=== PATIENT | male | born 1935 | race Asian ===

== ENCOUNTER 2018-05-25 16:22 | Emergency (ER) | END 2018-05-25 23:01 | disposition home or self-care (01) | DX: R07.89 Other chest pain (principal) ==

== ENCOUNTER 2018-09-06 08:08 | Inpatient (IN) | payer MEDICARE, OTHER ==
[~2018-09-06] VITALS: Ht 167.6 cm; Wt 56.2 kg
--- NOTE | 2018-09-06 08:30 | NUR ---
BIBRA[facility] FROM SNF, PER REPORT "CHEST PAIN" AND LOW GRADE FEVER. PATIENT PLACED ON MONITOR. NO DISTRESS NOTED. PIV STARTED ON RAC G20. WILL CONTINUE TO MONITOR.
[2018-09-06 08:32] LABS: BASOPHILS % (AUTO) 0.2 % (0.0-2.0); EOSINOPHILS % (AUTO) 0.1 % (0.0-6.0); HEMATOCRIT 39 % (39-51); HEMOGLOBIN 13.6 g/dL (13.5-17.5); LYMPHOCYTES # (AUTO) 0.8 /CMM (0.8-4.8); LYMPHOCYTES % (AUTO) 7.2 % (20.0-44.0); MEAN CORPUSCULAR HGB CONC 35 g/dl (31.0-36.0); MEAN CORPUSCULAR VOLUME 93 fL (80-96); MONOCYTES # (AUTO) 0.5 /CMM (0.1-1.30); MONOCYTES % (AUTO) 4.4 % (2.0-12.0); NEUTROPHILS # (AUTO) 10.3 /CMM (1.8-8.9); NEUTROPHILS % (AUTO) 88.1 % (43.0-81.0); PLATELET COUNT (AUTO) 161 /CMM (150-450); RED BLOOD CELL COUNT(AUTO) 4.22 MIL/uL (4.5-6.0); WHITE BLOOD COUNT (AUTO) 11.7 K/uL (4.3-11.0)
[2018-09-06 08:41] LABS: CALCIUM, SERUM 8.8 mg/dL (8.5-10.1); CARBON DIOXIDE 25 mmol/L (21-32); CHLORIDE 103 mmol/L (98-107); CREATININE 1.3 mg/dL (0.6-1.3); GLUCOSE 144 mg/dL (74-106); POTASSIUM 3.9 mmol/L (3.5-5.1); SODIUM SERUM 141 mmol/L (136-145); UREA NITROGEN, BLOOD 23 mg/dL (7-18)
--- NOTE | 2018-09-06 08:42 | NUR ---
DR SCHWAB AT BEDSIDE FOR PT EVAL. AWAITING ORDERS
[2018-09-06 08:58] LABS: ALANINE AMINOTRANSFERASE 48 U/L (12-78); ALKALINE PHOSPHATASE 81 U/L (46-116); ASPARTATE AMINOTRANSFERASE 27 U/L (15-37); B-TYPE NATRIURETIC PEPTIDE 188 PG/ML (0-125); BILIRUBIN,DIRECT 0.3 mg/dL (0.0-0.2); BILIRUBIN,TOTAL 1.2 mg/dL (0.2-1.0); TOTAL PROTEIN, SERUM 7.6 g/dL (6.4-8.2)
[2018-09-06] MEDS ORDERED: IV NS 0.9% 1,000 ML BAG IV ONE ×2 (09:00→10:00)
[2018-09-06 09:10] LABS: APPEARANCE,URINE Clear (CLEAR); BILIRUBIN,URINE Negative (NEGATIVE); BLOOD, URINE Trace-intact Ery/uL (NEGATIVE); COLOR,URINE Yellow (YELLOW); KETONES,URINE Negative (NEGATIVE); LEUKOCYTE ESTERASE ,URINE Negative (NEGATIVE); NITRITE, URINE Negative (NEGATIVE); PH,URINE 5.5 (5.0-8.0); PROTEIN,URINE Negative (NEGATIVE); UGLUCOSE Negative (NEGATIVE)
[2018-09-06 09:12] LABS: BACTERIA,URINE None seen /HPF (None Seen); RBC,URINE 0-2 /HPF (0-2); SQUAMOUS EPITHELIAL CELL,UR Few /HPF (None Seen); WBC,URINE 0-2 /HPF (0-3)
[2018-09-06] MEDS ORDERED: DONE10TA44 PO (09:30)
[2018-09-06] MEDS ORDERED: NITR0.4T48 SL (09:30)
[2018-09-06] MEDS ORDERED: BISA10SU8 RC (09:30)
[2018-09-06] MEDS ORDERED: ATOR10TA PO (09:30)
[2018-09-06] MEDS ORDERED: DORZ10DR13 EACHEYE (09:30)
[2018-09-06] MEDS ORDERED: NA P133E RC (09:30)
[2018-09-06] MEDS ORDERED: MAGN400O6 PO (09:30)
[2018-09-06] MEDS ORDERED: DOCU50LI PO (09:30)
[2018-09-06] MEDS ORDERED: ACET-868 PO (09:31)
[2018-09-06] MEDS ORDERED: LATA2.5D2 EACHEYE (09:31)
[2018-09-06] MEDS ORDERED: CHOL100044 PO (09:31)
--- NOTE | 2018-09-06 09:33 | NUR ---
PAGED DR. VEGAS
--- NOTE | 2018-09-06 10:20 | NUR ---
DR. VEGAS CALLED BACK AND SPOKE WITH DR. SCHWAB.
[2018-09-06] MEDS ORDERED: LEVOFLOXACIN 750 MG /D5W 150ML 150 ML IV ONE ×2 (10:28→10:30)
[2018-09-06] MEDS ORDERED: PIPERACILLIN /TAZOBACTAM 3.375 G in IV D5W 50 ML IV ONE (10:30)
--- NOTE | 2018-09-06 10:47 | NUR ---
LACTIC ACID BEING REPEATED, BLOOD DRAWN BY PHLEB.
--- NOTE | 2018-09-06 10:51 | NUR ---
BED ASSIGNED 114-1. PER DR. SCHWAB SHE WILL ORDER CT ABDOMEN WITH CONTRAST.
--- NOTE | 2018-09-06 10:56 | NUR ---
REPORT GIVEN TO CAROLINA JIMENEZ (JESSICA)
--- NOTE | 2018-09-06 13:00 | NUR ---
PATIENT TRANSFERRED TO ROOM 114-1 VIA ACLS PROTOCOL. STABLE CONDITION. ENDORSED TO CAROLINA JIMENEZ.
--- NOTE | 2018-09-06 13:00 | NUR ---
RN [facility] ADMISSION NOTE PATIENT RECEIVED FROM ER VIA GURNEY ASSISTED TO BED, PT RESPONSIVE TO PAINFUL STIMULI ANSWERS SIMPLE QUESTIONS APPROPRIATELY ORIENTED TO SELF. RESPIRATIONS EVEN AND UNLABORED, NOTED WITH UPPER AIRWAY CONGESTION. IN NO APPARENT PAIN OR DISCOMFORT AT THIS TIME. IV ACCESS TO RIGHT AC PATENT AND INTACT NO REDNESS OR INFILTRATION NOTED. DR. VEGAS PAGENico FOR ADMISSION ORDERS WILL CONTINUE TO MONITOR. ORIENTED TO ROOM AND USE OF CALL LIGHT, WILL CONTINUE TO MONITOR
[2018-09-06 13:13] VITALS: BP 120/73
[2018-09-06] MEDS ORDERED: CEFTRIAXONE 1 G VIAL IV SCH (14:00)
[2018-09-06] MEDS ORDERED: ALBUTEROL HALF STRENGTH 1.25 MG/3 ML VIAL.NEB NEB PRN (14:00)
[2018-09-06] MEDS: AZITHROMYCIN 500 MG in IV D5W 250 ML IV SCH ×2 (15:42→16:11)
[2018-09-06] MEDS: ALBUTEROL HALF STRENGTH 1.25 MG/3 ML VIAL.NEB NEB SCH ×3 (15:58→23:28)
[2018-09-06 16:00] VITALS: BP 114/66
--- NOTE | 2018-09-06 16:11 | NUR ---
RN NOTES AZITHROMYCIN ONLY GIVEN X1 DOSE SCANNED AT 1542, CONTINUE TO MONITOR AT THIS TIME , [facility] SHOWING 2 SCANS
[2018-09-06] MEDS: CEFTRIAXONE 1 G in IV D5W 50 ML IV SCH (16:19)
--- NOTE | 2018-09-06 19:01 | NUR ---
RN [facility] NOTE PATIENT RESTING COMFORTABLY IN BED, PT RESPONSIVE TO PAINFUL STIMULI ANSWERS SIMPLE QUESTIONS APPROPRIATELY ORIENTED TO SELF. RESPIRATIONS EVEN AND UNLABORED, NOTED WITH UPPER AIRWAY CONGESTION. IN NO APPARENT PAIN OR DISCOMFORT AT THIS TIME. IV ACCESS TO RIGHT AC PATENT AND INTACT NO REDNESS OR INFILTRATION NOTED. DR. ASCENCION CHATMAN FOR ADMISSION ORDERS WILL CONTINUE TO MONITOR. ORIENTED TO ROOM AND USE OF CALL LIGHT, WILL CONTINUE TO MONITOR AND ENDORSE TO NEXT SHIFT FOR CONTINUITY OF CARE
[2018-09-06 20:00] VITALS: BP 119/68
--- NOTE | 2018-09-06 20:00 | NUR ---
[facility] RN NOTES RECEIVED PTS IN BED AWaKE , CONFUSED , ON TELE SR ON MONITOR , NO SOB NO DISTRESS NOTED V/S STABLE AFEBRILE ,PTS STILL NOTED CONGESTED ON R/A SATING 96%, ALL NEEDS ATTENDED TOO CALL LIGHT WITHIN REACH , KEPT PTS CLEAN DRY AND COMFORTABLE ,WILL CONTINUE TO MONITOR PTS.
[2018-09-07] VITALS: BP 106/62
[2018-09-07] MEDS: ALBUTEROL HALF STRENGTH 1.25 MG/3 ML VIAL.NEB NEB SCH ×6 (03:15→23:33)
[2018-09-07 04:00] VITALS: BP 121/75
--- NOTE | 2018-09-07 06:36 | NUR ---
[facility] RN NOTES PTS REMAINS IN BED AWAKE AND RESPONSIVE, WITH PERIOD OF CONCUSSION NO SOB NO DISTRESS NOTED WILL ENDORSE RN DAY SHIFT FOR CONTINUITY OF CARE
--- NOTE | 2018-09-07 07:00 | NUR ---
[facility] RN OPENING NOTES RECEIVED PT IN BED, A/OX2. ON ROOM AIR. O2 SAT WNL; NON LABORED BREATHING. DIMINISHED LUNG BASES. NO C/O PAIN OR DISTRESS AT THIS TIME. IV HL ON RAC. FLUSHED/PATENT. ON TELE SR 99 WITH PVC'S. WILL FOLLOW UP WITH PHARMACY FOR MED RECON.M KANDICE IN CHART. BED IN LOCKED/LOWEST POSITION. CALL LIGHT IN REACH. WILL CONT TO MONITOR.
[2018-09-07 08:00] VITALS: BP 105/60
[2018-09-07] MEDS ORDERED: NITROGLYCERIN 0.4 MG/TAB BOTTLE SL PRN (08:00)
[2018-09-07] MEDS ORDERED: ACETAMINOPHEN 325 MG TABLET PO PRN (08:00)
[2018-09-07] MEDS ORDERED: NA PHOS,M-B/NA PHOS,DI-BA 1 EA ENEMA RC PRN (08:00)
[2018-09-07] MEDS ORDERED: BISACODYL SUPP (10 MG) 10 MG/SUPP.RECT SUPP.RECT RC PRN (08:00)
[2018-09-07] MEDS ORDERED: MAGNESIUM HYDROXIDE 30 ML UDC PO PRN (08:00)
[2018-09-07] MEDS ORDERED: TIMOLOL MAL/DORZOLAM HCL OPHTH 10 ML BOTTLE EACHEYE SCH (09:00)
--- NOTE | 2018-09-07 09:15 | NUR ---
ANTHROPOLOGY DEPARTMENT CHAIR NOTES PER DR. MONSTER BUSH TO TRANSFER TO [facility].
[2018-09-07] MEDS: TIMOLOL 0.5% SOLN OPHTH 5 ML BOTTLE EACHEYE SCH ×2 (09:44→17:00)
[2018-09-07] MEDS: DOCUSATE SODIUM 100 MG CAPSULE PO SCH (09:45)
[2018-09-07] MEDS: DORZOLAMIDE OPTH 2% 10 ML BOTTLE EACHEYE SCH ×2 (09:45→17:00)
[2018-09-07] MEDS: CHOLECALCIFEROL (VITAMIN D 3) 400 UNIT TABLET PO SCH (09:45)
--- NOTE | 2018-09-07 09:59 | NUR ---
MS RN NOTES PT UP WITH PT. SAT IN CHAIR.
[2018-09-07] MEDS: CEFTRIAXONE 1 G in IV D5W 50 ML IV SCH (14:12)
[2018-09-07 16:00] VITALS: BP 110/62
[2018-09-07] MEDS ORDERED: MEROPENEM 1 G in IV NS 0.9% 100 ML IV ONE (16:00)
[2018-09-07] MEDS ORDERED: IV NS 0.9% 1,000 ML BAG IV PRN (17:30)
[2018-09-07] MEDS: IV NS 0.9% 1,000 ML IV PRN (17:54)
[2018-09-07 17:56] LABS: ALANINE AMINOTRANSFERASE 40 U/L (12-78); ALBUMIN 3.2 g/dL (3.4-5.0); ALKALINE PHOSPHATASE 65 U/L (46-116); ASPARTATE AMINOTRANSFERASE 30 U/L (15-37); BILIRUBIN,TOTAL 2.2 mg/dL (0.2-1.0); CALCIUM, SERUM 8.3 mg/dL (8.5-10.1); CARBON DIOXIDE 25 mmol/L (21-32); CHLORIDE 106 mmol/L (98-107); GLUCOSE 102 mg/dL (74-106); POTASSIUM 3.7 mmol/L (3.5-5.1); SODIUM SERUM 141 mmol/L (136-145); TOTAL PROTEIN, SERUM 6.9 g/dL (6.4-8.2); UREA NITROGEN, BLOOD 12 mg/dL (7-18)
--- NOTE | 2018-09-07 19:32 | NUR ---
MS RN END OF SHIFT NOTES PT IN BED, A/OX2. SEEN BY DR VEGAS. NO S/SX OF RESP DISTRES. VS WNL. DAUGHTER UPDATED WITH POC. BED IN LOCKED/LOWEST POSITION. CALL LIGHT IN REACH. ENDORSED TO NOC NURSE FOR GREGORY.
[2018-09-07 20:00] VITALS: BP 96/59
--- NOTE | 2018-09-07 20:22 | NUR ---
RN OPENING NOTES RECEIVED REPORT FROM ADITYA JIMENEZ. PATIENT A/A/O X1-2 W/ SOME CONFUSION BUT ABLE ABLE TO MAKE NEEDS KNOWN & STATE PAIN. BREATHING EVEN & UNLABORED, TOLERATING ROOM AIR. DENIES ANY SOB OR DIFFICULTY BREATHING. RADIAL PULSES PRESENT. RIGHT AC IV #22 INTACT & PATENT W/ DRESSING CDI & IVF NS INFUSING WELL @ 75 ML/HR. DENIES ANY PAIN OR DISCOMFORT @ THIS TIME. SAFETY MEASURES IN PLACE W/ SIDE RAILS UP & BED ALARM ON. INSTRUCTED TO USE CALL LIGHT FOR ASSISTANCE. WILL CONTINUE TO MONITOR.
[2018-09-07] MEDS ORDERED: MEROPENEM 500 MG in IV NS 0.9% 50 ML IV SCH (21:00)
[2018-09-07] MEDS: DONEPEZIL 5 MG TABLET PO SCH (21:07)
[2018-09-07] MEDS: ATORVASTATIN 10 MG TABLET PO SCH (21:07)
[2018-09-07] MEDS: ENOXAPARIN SODIUM 40 MG/0.4 ML DISP.SYRIN SQ SCH (21:08)
[2018-09-07] MEDS: MEROPENEM 1 G in IV NS 0.9% 100 ML IV SCH (21:38)
[2018-09-07] MEDS: LATANOPROST EYE DROP 0.005% 2.5 ML BOTTLE EACHEYE SCH (21:39)
[2018-09-08] MEDS: ALBUTEROL HALF STRENGTH 1.25 MG/3 ML VIAL.NEB NEB SCH ×6 (03:40→23:50)
[2018-09-08 04:00] VITALS: BP 100/45
[2018-09-08 07:08] LABS: BASOPHILS % (AUTO) 0.3 % (0.0-2.0); EOSINOPHILS % (AUTO) 1.6 % (0.0-6.0); HEMATOCRIT 35 % (39-51); HEMOGLOBIN 12.5 g/dL (13.5-17.5); LYMPHOCYTES # (AUTO) 1.1 /CMM (0.8-4.8); LYMPHOCYTES % (AUTO) 14.4 % (20.0-44.0); MEAN CORPUSCULAR HGB CONC 36 g/dl (31.0-36.0); MEAN CORPUSCULAR VOLUME 92 fL (80-96); MONOCYTES # (AUTO) 0.4 /CMM (0.1-1.30); MONOCYTES % (AUTO) 4.7 % (2.0-12.0); NEUTROPHILS # (AUTO) 6.2 /CMM (1.8-8.9); PLATELET COUNT (AUTO) 140 /CMM (150-450); RED BLOOD CELL COUNT(AUTO) 3.82 MIL/uL (4.5-6.0); WHITE BLOOD COUNT (AUTO) 7.8 K/uL (4.3-11.0)
[2018-09-08 08:00] VITALS: BP 108/68
[2018-09-08] MEDS: DORZOLAMIDE OPTH 2% 10 ML BOTTLE EACHEYE SCH ×2 (08:56→16:16)
[2018-09-08] MEDS: DOCUSATE SODIUM 100 MG CAPSULE PO SCH (08:57)
[2018-09-08] MEDS: ASPIRIN EC 81 MG TABLET.DR PO SCH (08:57)
[2018-09-08] MEDS: CHOLECALCIFEROL (VITAMIN D 3) 400 UNIT TABLET PO SCH (08:57)
[2018-09-08] MEDS: MEROPENEM 1 G in IV NS 0.9% 100 ML IV SCH ×2 (08:57→20:49)
[2018-09-08] MEDS: TIMOLOL 0.5% SOLN OPHTH 5 ML BOTTLE EACHEYE SCH ×2 (08:57→16:17)
[2018-09-08 16:00] VITALS: BP 130/68
--- NOTE | 2018-09-08 19:00 | NUR ---
MS RN END OF SHIFT NOTES PT BACK IN BED, AFTER SITTING IN CHAIR EATING DINNER. PT ON IV FLUIDS INFUSING AT 75ML/HR. NO S/SX OF DISTRESS. BED IN LOCKED/LOWEST POSITION. BED ALARM ON. REPORTED TO NOC NURSE FOR GREGORY.
--- NOTE | 2018-09-08 19:29 | NUR ---
RN MS OPENING NOTES RECEIVED BED SIDE REPORT, PT CURRENTLY SITTING UP IN CHAIR EATING DINNER, A/O X2-3 BREATHING EVEN AND UNLABORED ON ROOM AIR, NO SIGNS OF SOB. NO COMPLAINT OF PAIN OR DISCOMFORT AT THE MOMENT. IV ACCESS ON THE RFA 20G, SL PATENT AND FLUSHING. PT WEARING A DIAPER, CLEAN AT THE MOMENT. BED IN LOWEST LOCKED POSITION, CALL LIGHT WITHIN REACH AT ALL TIMES, WILL CONTINUE TO MONITOR FREQUENTLY.
[2018-09-08] MEDS: DONEPEZIL 5 MG TABLET PO SCH (21:31)
[2018-09-08] MEDS: ATORVASTATIN 10 MG TABLET PO SCH (21:31)
[2018-09-08] MEDS: LATANOPROST EYE DROP 0.005% 2.5 ML BOTTLE EACHEYE SCH (21:32)
[2018-09-08] MEDS: ENOXAPARIN SODIUM 40 MG/0.4 ML DISP.SYRIN SQ SCH (21:32)
[2018-09-08 22:01] VITALS: BP 114/66
[2018-09-09] VITALS: BP 114/66
[2018-09-09] MEDS: IV NS 0.9% 1,000 ML IV PRN (02:23)
[2018-09-09] MEDS: ALBUTEROL HALF STRENGTH 1.25 MG/3 ML VIAL.NEB NEB SCH ×6 (03:39→23:18)
--- NOTE | 2018-09-09 06:07 | NUR ---
RN MS CLOSING NOTES PT REMAINS IN BED, SLEEPING, EASILY AROUSED TO NAME CALL, BREATHING EVEN AND UNLABORED ON ROOM AIR, NO SOB, COUGH OR CONGESTION NOTED. IN NO APPARENT PAIN OR DISCOMFORT AT THIS TIME. IV ACCESS ON THE RFA 20G WITH NS @75ML/HR. KEPT PT CLEAN AND DRY AT ALL TIMES. BED IN LOWEST LOCKED POSITION, CALL LIGHT WITHIN REACH AT ALL TIMES. WILL ENDORSE TO DAY NURSE FOR GREGORY.
--- NOTE | 2018-09-09 07:15 | NUR ---
RN OPENING NOTE RECEIVED PATIENT IN BED AWAKE AND ASKED HELPED TO GO TO THE BATHROOM. PATIENT IS AMBULATORY AND STEADY. NO COMPLAINS OF ANY PAIN OR SOB. HAS A RIGHT FOREARM #20 WITH THE LAST BAG OF NS RUNNING AT 75 ML/HR. HAS A SCHEDULED SWALLOW EVAL. BED LOCKED AND LOW POSITION. CALL LIGHT WITHIN REACH. WILL CONTINUE TO MONITOR
[2018-09-09 08:00] VITALS: BP 116/67
[2018-09-09] MEDS: CHOLECALCIFEROL (VITAMIN D 3) 400 UNIT TABLET PO SCH (08:27)
[2018-09-09] MEDS: ASPIRIN EC 81 MG TABLET.DR PO SCH (08:27)
[2018-09-09] MEDS: DOCUSATE SODIUM 100 MG CAPSULE PO SCH (08:27)
[2018-09-09] MEDS: MEROPENEM 1 G in IV NS 0.9% 100 ML IV SCH ×2 (08:27→21:11)
[2018-09-09] MEDS: TIMOLOL 0.5% SOLN OPHTH 5 ML BOTTLE EACHEYE SCH ×2 (08:29→17:13)
[2018-09-09] MEDS: DORZOLAMIDE OPTH 2% 10 ML BOTTLE EACHEYE SCH ×2 (08:29→17:13)
--- NOTE | 2018-09-09 09:15 | NUR ---
RN NOTE PATIENT WAS SEEN BY THE PHYSICAL THERAPIST, AMBULATED TO THE HALLWAY USING A WALKER. PATIENT DID SOME BED EXERCISES FOR HIS LOWER EXTREMITIES. NO COMPLAINS OF PAIN NOR SOB.
--- NOTE | 2018-09-09 12:00 | NUR ---
RN NOTE PATIENT IS EATING HIS LUNCH INDEPENDENTLY. PATIENT SITS ON THE EDGE OF THE BED BY HIMSELF. NO COMPLAINS OF ANY PAIN OR ANY DISTRESS AT THIS TIME.
[2018-09-09 16:00] VITALS: BP 132/64
--- NOTE | 2018-09-09 18:43 | NUR ---
RN CLOSING NOTE PATIENT AWAKE, A&Ox2-3. ALL NEEDS MET. 100% INTAKE FOR B,L AND D. NO COMPLAINS OF ANY PAIN THROUGHOUT THE SHIFT. NO SOB. WALKED WITH PT TODAY USING A WALKER. ALL MEDS GIVEN. WILL ENDORSE TO NOC SHIFT NURSE FOR CONTINUITY OF CARE.
--- NOTE | 2018-09-09 19:55 | NUR ---
RN NOTES RECEIVED PATIENT AWAKE IN BED, ALERT ORIENTED X3, NO SIGNS OF ACUTE RESPIRATORY DISTRESS NOTED, ALL SAFETY MEASURES IN PLACED, AMBULATORY WITH STANDBY ASSIST, DENIES ANY PAIN OR DISCOMFORT, ALL NEEDS ATTENDED, WILL MONITOR ACCORDINGLY.
[2018-09-09 20:00] VITALS: BP 124/69
[2018-09-09] MEDS: DONEPEZIL 5 MG TABLET PO SCH (21:12)
[2018-09-09] MEDS: ATORVASTATIN 10 MG TABLET PO SCH (21:12)
[2018-09-09] MEDS: ENOXAPARIN SODIUM 40 MG/0.4 ML DISP.SYRIN SQ SCH (21:15)
[2018-09-09] MEDS: LATANOPROST EYE DROP 0.005% 2.5 ML BOTTLE EACHEYE SCH (21:16)
[2018-09-10] VITALS: BP 124/69
[2018-09-10] MEDS: ALBUTEROL HALF STRENGTH 1.25 MG/3 ML VIAL.NEB NEB SCH ×6 (03:30→22:56)
--- NOTE | 2018-09-10 06:44 | NUR ---
RN NOTES ALL NEEDS ATTENDED AND MET, ABLE TO REST AND SLEEP COMFORTABLY AT INTERVALS, DENIES ANY PAIN AND DISCOMFORT, DAUGHTER CALLED AT 0600 ASKING PATIENTS CURRENT STATUS, INFORMED HER THAT WE WILL BE AWAITING FOR MD'S ROUNDS FOR TODAY, WE WILL CONTINUE TO MONITOR THE PATIENT, PATIENTS DAUGHTER VERBALIZES UNDERSTANDING. MARY ENDORSE TO AM NURSE FOR CONTINUITY OF CARE.
--- NOTE | 2018-09-10 07:00 | NUR ---
RN AM SHIFT NOTE PATIENT ALERT AND ORIENTED X2-3. COOPERATIVE AND PLEASANT. IN BED, IV PATENT AND INTACT, SKIN INTACT, NO COMPLAINS OF PAIN VITALS WNL. IV FLUIDS RUNNING, PATIENT ABLE TO AMBULATE WITH ASSIST. SAW PATIENT THIS AM AND REQUEST AM LABS TO BE DONE 09/11 WELL ANOTHER PT CONSULT. PT STATED PATIENT CAN AMBULATE WITH ASSIST AND ASSISTIVE DEVICE ONLY. FALL PRECAUTIONS IN PLACE, SAFETY MEASURES IN PLACE.
[2018-09-10 08:00] VITALS: BP 128/67
[2018-09-10 08:35] VITALS: BP 128/67
[2018-09-10] MEDS: MEROPENEM 1 G in IV NS 0.9% 100 ML IV SCH ×2 (08:36→21:21)
[2018-09-10] MEDS: ASPIRIN EC 81 MG TABLET.DR PO SCH (08:36)
[2018-09-10] MEDS: DOCUSATE SODIUM 100 MG CAPSULE PO SCH (08:36)
[2018-09-10] MEDS: CHOLECALCIFEROL (VITAMIN D 3) 400 UNIT TABLET PO SCH (08:36)
[2018-09-10] MEDS: TIMOLOL 0.5% SOLN OPHTH 5 ML BOTTLE EACHEYE SCH ×2 (08:37→16:00)
[2018-09-10] MEDS: DORZOLAMIDE OPTH 2% 10 ML BOTTLE EACHEYE SCH ×2 (08:37→16:00)
--- NOTE | 2018-09-10 11:30 | NUR ---
RN NOTES RECEIVED PT ON BED, ALERT , CONFUSED AND FORGETFUL AT TIMES , ON RA , RESPIRATION EVEN AND UNLABORED,SR UP x3, CALL LIGHT WITHIN EASY REACH, BED LOCKED AND IN LOWEST POSITION , CONTINUE TO MONITOR .
[2018-09-10 16:00] VITALS: BP 110/65
--- NOTE | 2018-09-10 18:00 | NUR ---
RN NOTES PT STABLE , NO SIGNIFICANT CHANGES NOTE ON THIS SHIFT, WILL ENDOSE TO CARDIOVASCULAR RN NURSE FOR CONTINUITY OF CARE
--- NOTE | 2018-09-10 19:10 | NUR ---
RN M/S NOTE PATIENT IS AOX2-3, SPEECH CLEAR, ON ROOM AIR, NO S/SX OF CARDIAC OR RESPIRATORY DISTRESS, DENIES PAIN, AMBULATORY, RAC #20G PATENT FLUSHING WELL, SKIN KEPT CLEAN AND DRY, SAFETY MAINTAINED AT ALL TIMES, BED IN LOW LOCKED POSITION, CALL LIGHT WITHIN REACH, WILL CONTINUE TO MONITOR FOR ANY CHANGES IN CONDITION.
[2018-09-10 20:00] VITALS: BP 96/54
[2018-09-10] MEDS: ENOXAPARIN SODIUM 40 MG/0.4 ML DISP.SYRIN SQ SCH (21:21)
[2018-09-10] MEDS: ATORVASTATIN 10 MG TABLET PO SCH (21:22)
[2018-09-10] MEDS: DONEPEZIL 5 MG TABLET PO SCH (21:23)
[2018-09-10] MEDS: LATANOPROST EYE DROP 0.005% 2.5 ML BOTTLE EACHEYE SCH (21:33)
[2018-09-11] MEDS: ALBUTEROL HALF STRENGTH 1.25 MG/3 ML VIAL.NEB NEB SCH ×4 (03:01→14:43)
[2018-09-11 04:00] VITALS: BP 130/60
[2018-09-11 06:39] LABS: BASOPHILS % (AUTO) 0.3 % (0.0-2.0); EOSINOPHILS % (AUTO) 5.4 % (0.0-6.0); HEMATOCRIT 33 % (39-51); HEMOGLOBIN 11.8 g/dL (13.5-17.5); LYMPHOCYTES # (AUTO) 1.6 /CMM (0.8-4.8); MEAN CORPUSCULAR HGB CONC 36 g/dl (31.0-36.0); MEAN CORPUSCULAR VOLUME 90 fL (80-96); MONOCYTES # (AUTO) 0.6 /CMM (0.1-1.30); MONOCYTES % (AUTO) 9.9 % (2.0-12.0); NEUTROPHILS # (AUTO) 3.8 /CMM (1.8-8.9); NEUTROPHILS % (AUTO) 59.4 % (43.0-81.0); PLATELET COUNT (AUTO) 184 /CMM (150-450); RED BLOOD CELL COUNT(AUTO) 3.63 MIL/uL (4.5-6.0); WHITE BLOOD COUNT (AUTO) 6.4 K/uL (4.3-11.0)
[2018-09-11 06:59] LABS: CALCIUM, SERUM 8.4 mg/dL (8.5-10.1); CARBON DIOXIDE 25 mmol/L (21-32); CHLORIDE 101 mmol/L (98-107); CREATININE 0.8 mg/dL (0.6-1.3); GLUCOSE 90 mg/dL (74-106); POTASSIUM 3.6 mmol/L (3.5-5.1); SODIUM SERUM 136 mmol/L (136-145); UREA NITROGEN, BLOOD 15 mg/dL (7-18)
--- NOTE | 2018-09-11 07:00 | NUR ---
RN M/S OPENING NOTE PATIENT IS AOX2-3, SPEECH CLEAR, ON ROOM AIR, NO S/SX OF CARDIAC OR RESPIRATORY DISTRESS, DENIES PAIN, AMBULATORY, RAC #20G PATENT FLUSHING WELL, SKIN KEPT CLEAN AND DRY, SAFETY MAINTAINED AT ALL TIMES, BED IN LOW LOCKED POSITION, CALL LIGHT WITHIN REACH, WILL CONTINUE TO MONITOR FOR ANY CHANGES IN CONDITION.
[2018-09-11 08:00] VITALS: BP 114/65
[2018-09-11] MEDS: ASPIRIN EC 81 MG TABLET.DR PO SCH (08:27)
[2018-09-11] MEDS: MEROPENEM 1 G in IV NS 0.9% 100 ML IV SCH (08:27)
[2018-09-11] MEDS: CHOLECALCIFEROL (VITAMIN D 3) 400 UNIT TABLET PO SCH (08:27)
[2018-09-11] MEDS: DOCUSATE SODIUM 100 MG CAPSULE PO SCH (08:27)
[2018-09-11] MEDS: TIMOLOL 0.5% SOLN OPHTH 5 ML BOTTLE EACHEYE SCH (08:28)
[2018-09-11] MEDS: DORZOLAMIDE OPTH 2% 10 ML BOTTLE EACHEYE SCH (08:28)
[2018-09-11 16:00] VITALS: BP 108/59
--- NOTE | 2018-09-11 16:50 | NUR ---
RN M/S DISCHARGE NOTE GAVE PT REPORT TO BARBARA PETERS [facility] FOR GREGORY. PATIENT STABLE, IS AOX2-3, SPEECH CLEAR, ON ROOM AIR, NO S/SX OF CARDIAC OR RESPIRATORY DISTRESS, DENIES PAIN, AMBULATORY, RAC #20G PATENT FLUSHING WELL. VITALS SIGNS WNL. SKIN KEPT CLEAN AND DRY, SAFETY MAINTAINED AT ALL TIMES, ALL MD ORDERS ATTENDED, ALL NEEDS MET. EXIT CARE DONE. CALLED MACARENA (DAUGHTER) FOR UPDATE AND TRANSFER INFORMATION. PT LEFT THE UNIT VIA GURNEY WITH AMBULANCE PERSONNEL.
== END 2018-09-11 16:50 | DRG 871 ==
LOC: ER 08:12 → TELE-TD 10:54 → MEDSG1 09-07 09:09
PROVIDERS: ADMIT Internal Medicine; ATTEND Internal Medicine
DX: A41.9 Sepsis, unspecified organism (principal); J69.0 Pneumonitis due to inhalation of food and vomit; N17.9 Acute kidney failure, unspecified; R64 Cachexia; G93.40 Encephalopathy, unspecified; D69.6 Thrombocytopenia, unspecified; I25.10 Atherosclerotic heart disease of native coronary artery without angina pectoris; Z98.61 Coronary angioplasty status; Z68.20 Body mass index [BMI] 20.0-20.9, adult; D72.829 Elevated white blood cell count, unspecified; R65.20 Severe sepsis without septic shock; F03.90 Unspecified dementia, unspecified severity, without behavioral disturbance, psychotic disturbance, mood disturbance, and anxiety; H40.9 Unspecified glaucoma; I10 Essential (primary) hypertension; Z66 Do not resuscitate
CPT/HCPCS: 36415; 71045-TC; 71250-TC; 80048-TC; 80053-TC; 80076-TC; 81000-TC; 83605-TC; 83880; 84484-TC; 85025-TC; 85730-TC; 87040-TC; 87081-TC; 87086-TC; 97110-TC; 97112-TC; 97116-TC; 97530-TC; A4216; G0378; J0456; J0696; J1650; J1956; J2185; J2543; J7030; J7050; J7060

== ENCOUNTER 2018-09-26 12:42 | Emergency (ER) | payer MEDICARE, OTHER ==
[~2018-09-26] VITALS: Ht 167.6 cm; Wt 59.4 kg
[~2018-09-26 12:42] MED LIST: ACET-868 PO; ATOR10TA PO; BISA10SU8 RC; CHOL100044 PO; DOCU50LI PO; DONE10TA44 PO; DORZ10DR13 EACHEYE; LATA2.5D2 EACHEYE; MAGN400O6 PO; NA P133E RC; NITR0.4T48 SL
--- NOTE | 2018-09-26 12:44 | NUR ---
PT BIB PA FROM [facility], [facility]CE YESTERDAY, PT IS AAOX2, NOT IN RESPIRATORY DISTRESS, V/S STABLE, KEPT RESTED AND COMFORTABLE, WILL CONTINUE TO MONITOR.
--- NOTE | 2018-09-26 12:45 | NUR ---
IV LINE ESTABLISHED, LABS DRAWNED AND SENT TO LAB.
--- NOTE | 2018-09-26 12:49 | NUR ---
DR. PENALOZA AT BEDSIDE FOR EVAL.
[2018-09-26] MEDS ORDERED: IV NS 0.9% 500 ML BAG IV ONE (13:00)
[2018-09-26 13:03] LABS: BASOPHILS # (AUTO) 0.1 /CMM (0.0-0.2); BASOPHILS % (AUTO) 0.6 % (0.0-2.0); EOSINOPHILS % (AUTO) 0.6 % (0.0-6.0); HEMATOCRIT 39 % (39-51); HEMOGLOBIN 13.8 g/dL (13.5-17.5); LYMPHOCYTES # (AUTO) 0.8 /CMM (0.8-4.8); MEAN CORPUSCULAR HGB CONC 35 g/dl (31.0-36.0); MEAN CORPUSCULAR VOLUME 93 fL (80-96); MONOCYTES # (AUTO) 0.5 /CMM (0.1-1.30); MONOCYTES % (AUTO) 4.9 % (2.0-12.0); NEUTROPHILS # (AUTO) 8.8 /CMM (1.8-8.9); NEUTROPHILS % (AUTO) 85.9 % (43.0-81.0); PLATELET COUNT (AUTO) 220 /CMM (150-450); RED BLOOD CELL COUNT(AUTO) 4.23 MIL/uL (4.5-6.0); WHITE BLOOD COUNT (AUTO) 10.2 K/uL (4.3-11.0)
[2018-09-26 13:13] LABS: CALCIUM, SERUM 8.8 mg/dL (8.5-10.1); CARBON DIOXIDE 31 mmol/L (21-32); CHLORIDE 103 mmol/L (98-107); CREATININE 1.2 mg/dL (0.6-1.3); GLUCOSE 124 mg/dL (74-106); POTASSIUM 4.4 mmol/L (3.5-5.1); SODIUM SERUM 139 mmol/L (136-145); UREA NITROGEN, BLOOD 21 mg/dL (7-18)
--- NOTE | 2018-09-26 13:15 | NUR ---
URINE SPECIMEN COLLECED VIA STRAIGHT CATH AND SENT TO LAB.
[2018-09-26] MEDS ORDERED: ASPI-1169 PO (13:16)
[2018-09-26] MEDS ORDERED: DORZ10DR10 EACHEYE (13:16)
[2018-09-26] MEDS ORDERED: TIMO5DRO35 EACHEYE (13:16)
[2018-09-26] MEDS ORDERED: IPRA3AMP23 IH ×2 (13:16)
--- NOTE | 2018-09-26 13:16 | NUR ---
WILDLIFE REMOVAL SPECIALIST AT BEDSIDE FOR XRAY.
[2018-09-26 13:19] LABS: ALANINE AMINOTRANSFERASE 46 U/L (12-78); ALBUMIN 3.8 g/dL (3.4-5.0); ALKALINE PHOSPHATASE 96 U/L (46-116); ASPARTATE AMINOTRANSFERASE 25 U/L (15-37); BILIRUBIN,DIRECT 0.3 mg/dL (0.0-0.2); BILIRUBIN,TOTAL 2.4 mg/dL (0.2-1.0); TOTAL PROTEIN, SERUM 7.6 g/dL (6.4-8.2)
[2018-09-26 13:22] LABS: APPEARANCE,URINE Clear (CLEAR); BILIRUBIN,URINE Negative (NEGATIVE); BLOOD, URINE Trace-intact Ery/uL (NEGATIVE); COLOR,URINE Yellow (YELLOW); KETONES,URINE Trace (NEGATIVE); LEUKOCYTE ESTERASE ,URINE Negative (NEGATIVE); NITRITE, URINE Negative (NEGATIVE); PROTEIN,URINE Negative (NEGATIVE); UGLUCOSE Negative (NEGATIVE)
[2018-09-26 13:24] LABS: BACTERIA,URINE Rare /HPF (None Seen); SQUAMOUS EPITHELIAL CELL,UR Rare /HPF (None Seen)
--- NOTE | 2018-09-26 13:59 | NUR ---
ELISEO CALLED NANDO 1610 AUTH # [id number]
--- NOTE | 2018-09-26 16:07 | NUR ---
REPORT GIVEN TO BARBARA JIN OF [facility].
[2018-09-26 16:40] VITALS: BP 108/62
--- NOTE | 2018-09-26 16:40 | NUR ---
IV removed. Catheter intact and site benign. Pressure and 4x4 applied to site. No bleeding noted. Patient discharged to home in stable condition. Written and verbal after care instructions given. Patient verbalizes understanding of instruction.
== END 2018-09-26 16:42 ==
LOC: ER 12:43
DX: F02.80 Dementia in other diseases classified elsewhere, unspecified severity, without behavioral disturbance, psychotic disturbance, mood disturbance, and anxiety (principal); G30.9 Alzheimer's disease, unspecified; G93.40 Encephalopathy, unspecified; I10 Essential (primary) hypertension; I25.10 Atherosclerotic heart disease of native coronary artery without angina pectoris; M62.81 Muscle weakness (generalized); Z98.890 Other specified postprocedural states; Z79.82 Long term (current) use of aspirin
CPT/HCPCS: 36415; 71045; 80048; 80076; 81001; 83605; 84484; 85025; 85730; 87040 ×2; 87086; 93005; 99285; J7040; 81000-TC

== ENCOUNTER 2018-09-28 14:36 | Inpatient (IN) | payer MEDICARE, OTHER ==
[~2018-09-28] VITALS: Ht 170.2 cm; Wt 55.3 kg
[~2018-09-28 14:36] MED LIST changes: +ASPI-1169 PO; +DORZ10DR10 EACHEYE; -DORZ10DR13 EACHEYE; +IPRA3AMP23 IH; +TIMO5DRO35 EACHEYE
--- NOTE | 2018-09-28 14:45 | NUR ---
patient presented to the ER, OBI from snf, c/o generalized weakness. On room air, breathing evenly and unlabored. Connected to the monitor and pulse ox. Kept comfortable, will continue to monitor accordingly.
[2018-09-28] MEDS ORDERED: ALBU0.633 IH ×2 (14:57)
[2018-09-28 15:07] LABS: BASOPHILS % (AUTO) 0.5 % (0.0-2.0); EOSINOPHILS % (AUTO) 3.9 % (0.0-6.0); HEMATOCRIT 34 % (39-51); HEMOGLOBIN 11.8 g/dL (13.5-17.5); LYMPHOCYTES # (AUTO) 1.2 /CMM (0.8-4.8); LYMPHOCYTES % (AUTO) 27.7 % (20.0-44.0); MEAN CORPUSCULAR HGB CONC 35 g/dl (31.0-36.0); MEAN CORPUSCULAR VOLUME 94 fL (80-96); MONOCYTES # (AUTO) 0.3 /CMM (0.1-1.30); MONOCYTES % (AUTO) 7.4 % (2.0-12.0); NEUTROPHILS # (AUTO) 2.7 /CMM (1.8-8.9); NEUTROPHILS % (AUTO) 60.5 % (43.0-81.0); PLATELET COUNT (AUTO) 168 /CMM (150-450); RED BLOOD CELL COUNT(AUTO) 3.62 MIL/uL (4.5-6.0); WHITE BLOOD COUNT (AUTO) 4.5 K/uL (4.3-11.0)
--- NOTE | 2018-09-28 15:15 | NUR ---
patient wheeled via gurney to ct scan.
--- NOTE | 2018-09-28 15:24 | NUR ---
patient came back from ct.
[2018-09-28 15:42] LABS: CALCIUM, SERUM 8.2 mg/dL (8.5-10.1); CARBON DIOXIDE 30 mmol/L (21-32); CHLORIDE 107 mmol/L (98-107); GLUCOSE 119 mg/dL (74-106); POTASSIUM 5.1 mmol/L (3.5-5.1); SODIUM SERUM 143 mmol/L (136-145); UREA NITROGEN, BLOOD 23 mg/dL (7-18)
[2018-09-28 15:48] LABS: ALANINE AMINOTRANSFERASE 34 U/L (12-78); ALBUMIN 3.2 g/dL (3.4-5.0); ALCOHOL, BLOOD < 3 mg/dL (0-0); ALKALINE PHOSPHATASE 75 U/L (46-116); ASPARTATE AMINOTRANSFERASE 23 U/L (15-37); BILIRUBIN,DIRECT 0.3 mg/dL (0.0-0.2); BILIRUBIN,TOTAL 1.5 mg/dL (0.2-1.0); TOTAL PROTEIN, SERUM 6.9 g/dL (6.4-8.2)
--- NOTE | 2018-09-28 16:19 | NUR ---
DR. ASCENCION CHATMAN. AWAITING FOR CALL BACK.
--- NOTE | 2018-09-28 16:22 | NUR ---
URINE COLLECTED AND SENT TO LAB
[2018-09-28 16:25] LABS: SERUM AMMONIA 29 umol/L (11-32)
[2018-09-28 16:44] LABS: APPEARANCE,URINE Slightly Cloudy (CLEAR); BILIRUBIN,URINE Negative (NEGATIVE); BLOOD, URINE Trace-lysed Ery/uL (NEGATIVE); COLOR,URINE Dark (YELLOW); KETONES,URINE Negative (NEGATIVE); LEUKOCYTE ESTERASE ,URINE Negative (NEGATIVE); NITRITE, URINE Negative (NEGATIVE); PH,URINE 5.5 (5.0-8.0); PROTEIN,URINE Negative (NEGATIVE); UGLUCOSE Negative (NEGATIVE)
[2018-09-28] MEDS ORDERED: IV NS 0.9% 1,000 ML BAG IV ONE (17:00)
[2018-09-28 17:15] LABS: MUCUS,URINE Moderate /LPF (None Seen)
[2018-09-28 17:16] LABS: BACTERIA,URINE Rare /HPF (None Seen); RBC,URINE 0-2 /HPF (0-2); SQUAMOUS EPITHELIAL CELL,UR Rare /HPF (None Seen); WBC,URINE 0-2 /HPF (0-3)
--- NOTE | 2018-09-28 18:08 | NUR ---
received a call from house sup patient is going to room 106
--- NOTE | 2018-09-28 18:15 | NUR ---
called [facility] and spoke to Madeleine JIMENEZ for report and lacey.
[2018-09-28 18:40] VITALS: BP 123/69
--- NOTE | 2018-09-28 18:40 | NUR ---
ZIPPER MACHINE OPERATORBARIATRIC PHYSICIAN NOTE PT ARRIVE TO TELE UNIT VIA GURNEY IN STABLE CONDITION ACCOMPANIED BY ER STAFF. PT IS A/O X2, AFEBRILE. RESPIRATIONS ARE EVEN AND UNLABORED, NOT IN ANY ACUTE DISTRESS NOTED. PUPILS ARE REACTIVE TO LIGHT, BILATERAL HAND CORRECTIONS IDENTIFICATION TECHNICIAN ARE STRONG AND EQUAL. ABDOMEN IS SOFT AND NONDISTENDED, BOWEL SOUNDS ARE PRESENT IN ALL 4 QUADRANTS UPON AUSCULTATION. DENIES ANY BLADDER DISCOMFORT. PT IS AMBULATORY WITH ASSIST. IV SITE TO RAC 18G INTACT, NO INFILTRATION NOTED. DRESSING KEPT CLEAN AND DRY. BELONGINGS LIST SIGNED, CAME WITH SHORTS AND A PAIR OF SOCKS. SKIN IS INTACT. NO OPEN WOUNDS NOTED. SAFETY MEASURES ARE IN PLACE. BED ALARM IS ON AND IN ITS LOWEST POSITION. PAGED DR VEGAS, AWAITING A CALL BACK. WILL CONTINUE TO MONITOR AND ENDORSE TO NEXT SHIFT FOR CONTINUITY OF CARE.
--- NOTE | 2018-09-28 18:42 | NUR ---
wheeled patient via gurney to [facility] going to room 106 in no apparent distress noted.
[2018-09-28] MEDS ORDERED: NITROGLYCERIN 0.4 MG/TAB BOTTLE SL PRN (19:00)
[2018-09-28] MEDS ORDERED: ACETAMINOPHEN 325 MG TABLET PO PRN (19:00)
[2018-09-28] MEDS ORDERED: NA PHOS,M-B/NA PHOS,DI-BA 1 EA ENEMA RC PRN (19:00)
[2018-09-28] MEDS ORDERED: MAGNESIUM HYDROXIDE 30 ML UDC PO PRN (19:00)
[2018-09-28] MEDS ORDERED: BISACODYL SUPP (10 MG) 10 MG/SUPP.RECT SUPP.RECT RC PRN (19:00)
[2018-09-28] MEDS ORDERED: IV NS 0.9% 1,000 ML IV SCH (19:00)
[2018-09-28] MEDS ORDERED: ALBUTEROL FS 2.5 MG/0.5 ML VIAL.NEB NEB PRN (19:30)
--- NOTE | 2018-09-28 19:45 | NUR ---
BRICK CATCHER NOTE: RECEIVED PT ON BED ALERT AND ORIENTED X2. ABLE TO MAKE NEEDS KNOWN. NO APPARENT DISTRESS NOTED. NO COMPLAINTS OF PAIN OR DISCOMFORT AT THIS TIME. ON ROOM AIR, BREATHING EVEN AND UNLABORED WITH NORMAL RESPIRATIONS. IV ON RIGHT ANTECUBITAL #20 INTACT AND PATENT, FLUSHING WELL. ON TELE MONITOR SINUS RHYTHM HR 89BPM. PT ABLE TO AMBULATE TO THE BATHROOM WITH ASSIST. CALL LIGHT PLACED WITHIN REACH. KEPT CLEAN, DRY AND COMFORTABLE. SIDE RAILS UP X3. BED ALARM ON. BED LOCKED AND IN LOWEST POSITION. WILL CONTINUE TO MONITOR PT.
[2018-09-28 20:00] VITALS: BP 142/65
[2018-09-28] MEDS: ENOXAPARIN SODIUM 40 MG/0.4 ML DISP.SYRIN SQ SCH (20:11)
[2018-09-28] MEDS: ALBUTEROL FS 2.5 MG/0.5 ML VIAL.NEB NEB SCH ×2 (20:46→23:42)
[2018-09-28] MEDS: IV NS 0.9% 1,000 ML IV PRN (20:53)
[2018-09-28] MEDS: ATORVASTATIN 10 MG TABLET PO SCH (21:22)
[2018-09-28] MEDS: LATANOPROST EYE DROP 0.005% 2.5 ML BOTTLE EACHEYE SCH (21:22)
[2018-09-28] MEDS ORDERED: DONEPEZIL 5 MG TABLET PO SCH (22:00)
[2018-09-29] VITALS (7 sets, daily range): BP systolic 100–138; BP diastolic 57–72
[2018-09-29] MEDS: ALBUTEROL FS 2.5 MG/0.5 ML VIAL.NEB NEB SCH ×6 (03:26→23:14)
--- NOTE | 2018-09-29 06:42 | NUR ---
FARM MANAGEMENT AGENT NOTE: NO CHANGES NOTED THROUGHOUT THE SHIFT. NO APPARENT DISTRESS NOTED. DENIES PAIN AND DISCOMFORT AT THIS TIME. ON ROOM AIR, NO SOB NOTED. IV ON RIGHT ANTECUBITAL #20 INTACT AND PATENT, IVF INFUSING WELL. ON TELE MONITOR SINUS ZAHEER HR 59BPM. KEPT CLEAN, DRY AND COMFORTABLE. SAFETY AND FALL PRECAUTIONS OBSERVED AND MAINTAINED. WILL ENDORSE TO DAY SHIFT RN FOR CONTINUITY OF CARE
--- NOTE | 2018-09-29 07:38 | NUR ---
SUPERVISOR LONG GOODS NOTES PATIENT RECEIVED RESTING INSIDE ROOM. SLEEPING, EASILY AROUSABLE THROUGH VERBAL AND TACTILE STIMULI. BREATHING EVEN AND UNLABORED. NO ACUTE DISTRESS AT THIS TIME. PATIENT CALM AND RELAXED. CONTINUE ON TELEMETRY, NSR AT [address] BPM. SAFETY PRECAUTIONS IN PLACE. WILL CONTINUE TO MONITOR. BED LOCKED AND IN LOW POSITION. BILATEREAL UPPER SIDE RAILS UP AND LOCKED. CALL LIGHT WITHIN EASY REACH
[2018-09-29] MEDS: CHOLECALCIFEROL 1,000 UNIT TABLET (VIT D3) PO SCH (08:07)
[2018-09-29] MEDS: TIMOLOL 0.5% SOLN OPHTH 5 ML BOTTLE EACHEYE SCH ×2 (08:07→18:21)
[2018-09-29] MEDS: DORZOLAMIDE OPTH 2% 10 ML BOTTLE EACHEYE SCH ×2 (08:07→18:21)
[2018-09-29] MEDS: DOCUSATE SODIUM LIQ 100 MG/10 ML UDC PO SCH (08:07)
[2018-09-29 09:57] LABS: BASOPHILS % (AUTO) 0.6 % (0.0-2.0); HEMATOCRIT 32 % (39-51); HEMOGLOBIN 11.2 g/dL (13.5-17.5); LYMPHOCYTES # (AUTO) 1.4 /CMM (0.8-4.8); LYMPHOCYTES % (AUTO) 38.4 % (20.0-44.0); MEAN CORPUSCULAR HGB CONC 35 g/dl (31.0-36.0); MEAN CORPUSCULAR VOLUME 93 fL (80-96); MONOCYTES # (AUTO) 0.3 /CMM (0.1-1.30); MONOCYTES % (AUTO) 7.7 % (2.0-12.0); NEUTROPHILS # (AUTO) 1.7 /CMM (1.8-8.9); NEUTROPHILS % (AUTO) 47.3 % (43.0-81.0); PLATELET COUNT (AUTO) 163 /CMM (150-450); RED BLOOD CELL COUNT(AUTO) 3.42 MIL/uL (4.5-6.0); WHITE BLOOD COUNT (AUTO) 3.6 K/uL (4.3-11.0)
[2018-09-29 10:05] LABS: CALCIUM, SERUM 8.2 mg/dL (8.5-10.1); CARBON DIOXIDE 25 mmol/L (21-32); CHLORIDE 108 mmol/L (98-107); CREATININE 0.8 mg/dL (0.6-1.3); GLUCOSE 139 mg/dL (74-106); POTASSIUM 3.6 mmol/L (3.5-5.1); SODIUM SERUM 144 mmol/L (136-145); UREA NITROGEN, BLOOD 16 mg/dL (7-18)
--- NOTE | 2018-09-29 11:45 | NUR ---
MS RN NOTES PATIENT SEEN AND EXAMINED BY DR VEGAS. AWAITING EEG AND PT EVAL AT THIS TIME. NO NEW ORDERS WITH DR VEGAS. WILL CONTINUE TO MONITOR
--- NOTE | 2018-09-29 12:55 | NUR ---
MS JIMENEZ NOTES PT AT BEDSIDE Addendum: 09/29/18 at 1325 by MODESTA TALAVERA RN PHYSICAL THERAPY AT BEDSIDE
[2018-09-29] MEDS: ASPIRIN 81 MG TAB.CHEW PO SCH (18:21)
[2018-09-29] MEDS: ENOXAPARIN SODIUM 40 MG/0.4 ML DISP.SYRIN SQ SCH (18:23)
--- NOTE | 2018-09-29 18:49 | NUR ---
MS RN NOTES PATIENT RESTING INSIDE ROOM. AWAKE, ALERT AND ORIENTED X 2 WITH PERIODS OF FORGETFULNESS, REORIENTED NEEDED. PATIENT BREATHING EVEN AND UNLABORED. NO ACUTE DISTRESS AT THIS TIME. PATIENT DENIES ANY PAIN OR DISCOMFORT. NO CHANGES IN LOC NOTED AT THIS TIME. IV INTACT AND PATENT, IVF INFUSING WELL. SAFETY PRECAUTIONS IN PLACE. WILL ENDORSE TO INCOMING SHIFT FOR GREGORY. BED LOCKED AND IN LOW POSITION. BILATERAL UPPER SIDE RAILS UP AND LOCKED. CALL LIGHT WITHIN EASY REACH
--- NOTE | 2018-09-29 19:05 | NUR ---
MS RN OPENING NOTES: RECEIVED PT ON ROOM AIR AND IS TOLERATING WELL. TECH AT BEDSIDE PERFORMING EEG. PT'S IV REMAINS INTACT AND IS BEING INFUSED WITH IV NS AT 60ML/HR. PT IS A/OX2 AND IS AWAKE IN BED. BED KEPT IN LOW, LOCKED POSITION, AND SIDE RAILS X 2UP. WILL CONTINUE TO MONITOR PT.
--- NOTE | 2018-09-29 19:36 | NUR ---
RT NOTE PT IS HAVING A EEG TEST PERFORMED.
[2018-09-29] MEDS: ATORVASTATIN 10 MG TABLET PO SCH (21:13)
[2018-09-29] MEDS: LATANOPROST EYE DROP 0.005% 2.5 ML BOTTLE EACHEYE SCH (21:13)
[2018-09-29] MEDS: IV NS 0.9% 1,000 ML IV PRN (21:14)
[2018-09-30] MEDS: ALBUTEROL FS 2.5 MG/0.5 ML VIAL.NEB NEB SCH ×6 (02:56→23:02)
[2018-09-30 04:00] VITALS: BP 105/62
[2018-09-30 05:00] VITALS: BP 105/62
--- NOTE | 2018-09-30 06:05 | NUR ---
MS RN NOTES: CONTACTED MACARENA BONNER, DAUGHTER, OF [facility] [phone] ; GOT CONSENT FOR CT PULMONARY ANGIOGRAM. HAD ANOTHER RN WITNESS, RUDDY. MACARENA LEYVanesa WILL BE HERE LATER SHE IS COMING FROM THE [facility].
--- NOTE | 2018-09-30 06:33 | NUR ---
MS RN CLOSING NOTES: ALL NEEDS WERE ATTENDED AND ANTICIPATED FOR. PT KEPT CLEAN, DRY, AND COMFORTABLE. PT ASLEEP AT THIS TIME AND RESTING COMFORTABLY. PT HAS PERIODS OF CONFUSION AND IS REORIENTED PRN. IV REMAINS INTACT AND IS TO BE CONNECTED BACK TO IV NS AT 60ML/HR. BED KEPT IN LOW, LOCKED POSITION, AND SIDE RAILS X [address] PULMONARY ANGIOGRAM PLACED IN CHART AND PER RADIOLOGY, TO KEEP PT NPO. WILL ENDORSE TO AM NURSE FOR GREGORY.
--- NOTE | 2018-09-30 07:15 | NUR ---
MS RN OPENING NOTES RECEIVED PT LYING ON BED.ALERT/ORIENTED X1 WITH CONFUSED.ON ROOM AIR,TOLERATING WELL.NO SOB AND ACUTE DISTRESS NOTED.ON NPO FROM MIDNIGHT,TOLERATING WELL.IV LINE IS ON RIGHT AC G20,IV SITE IS CLEAN,DRY AND INTACT.NO INFILTRATION NOTED.SAFETY IS MAINTAINED AT ALL TIMES.BED IS IN LOW POSITION AND LOCKED,CALL LIGHT IS WITHIN REACH. WILL CONTINUE TO MONITOR THE PT CLOSELY.
[2018-09-30 08:00] VITALS: BP 114/67
[2018-09-30] MEDS: CHOLECALCIFEROL 1,000 UNIT TABLET (VIT D3) PO SCH (08:51)
[2018-09-30] MEDS: TIMOLOL 0.5% SOLN OPHTH 5 ML BOTTLE EACHEYE SCH ×2 (08:51→16:25)
[2018-09-30] MEDS: DORZOLAMIDE OPTH 2% 10 ML BOTTLE EACHEYE SCH ×2 (08:51→16:43)
[2018-09-30] MEDS: DOCUSATE SODIUM LIQ 100 MG/10 ML UDC PO SCH (08:51)
--- NOTE | 2018-09-30 10:00 | NUR ---
MS RN NOTES PT WENT TO CTA,NO COMPLICATIONS NOTED.
[2018-09-30] MEDS ORDERED: CT SWABBABLE VALVE TRANS SET 1 EA INFUS.SET MC ONE (10:08)
[2018-09-30] MEDS ORDERED: IOHEXOL-350 100 ML VIAL IV ONE (10:08)
[2018-09-30] MEDS ORDERED: IV NS 0.9% 250 ML IV ONE (10:08)
--- NOTE | 2018-09-30 10:25 | NUR ---
MS RN NOTES PT CAME BACK FROM THE PROCEDURE CTA.TOLERATING WELL.
[2018-09-30 16:00] VITALS: BP 96/72
[2018-09-30] MEDS: ASPIRIN 81 MG TAB.CHEW PO SCH (17:31)
--- NOTE | 2018-09-30 18:28 | NUR ---
MS RN CLOSING NOTES PT IS LYING ON BED.ALERT/ORIENTED X2.ON ROOM AIR,TOLERATING WELL.NO SOB AND ACUTE DISTRESS NOTED.IV LINE IS ON RIGHT AC G20 WITH IV FLUIDS IS RUNNING,IV SITE IS CLEAN,DRY AND INTACT.NO INFILTRATION NOTED.RESPIRATION IS EVEN AND NONLABORED.NO SIGNIFICANT CHANGES NOTED IN THE SHIFT.ENDORSED TO SHEET METAL LAY OUT WORKER RN FOR GREGORY.
[2018-09-30] MEDS: ENOXAPARIN SODIUM 40 MG/0.4 ML DISP.SYRIN SQ SCH (18:37)
--- NOTE | 2018-09-30 19:45 | NUR ---
MS RN NOTE: RECEIVED PT ON BED ALERT AND ORIENTED X2 WITH EPISODES OF CONFUSION. NO APPARENT DISTRESS NOTED. NO COMPLAINTS OF PAIN OR DISCOMFORT. ON ROOM AIR, NO SOB NOTED. RIGHT ANTECUBITAL #20 INTACT AND PATENT, IVF INFUSING WELL. NO SIGNS/SYMPTOMS OF INFILTRATION NOTED. CALL LIGHT PLACED WITHIN REACH. KEPT CLEAN, DRY AND COMFORTABLE. SIDE RAILS UP X3. BED ALARM ON. BED LOCKED AND IN LOWEST POSITION. WILL CONTINUE TO MONITOR PT.
[2018-09-30 20:00] VITALS: BP 98/61
[2018-09-30] MEDS: ATORVASTATIN 10 MG TABLET PO SCH (21:07)
[2018-09-30] MEDS: LATANOPROST EYE DROP 0.005% 2.5 ML BOTTLE EACHEYE SCH (21:07)
[2018-09-30] MEDS: IV NS 0.9% 1,000 ML IV PRN (21:39)
[2018-10-01] MEDS: ALBUTEROL FS 2.5 MG/0.5 ML VIAL.NEB NEB SCH ×6 (03:12→23:38)
[2018-10-01 04:00] VITALS: BP 104/59
--- NOTE | 2018-10-01 06:31 | NUR ---
MS RN NOTE: NO CHANGES NOTED THROUGHOUT THE SHIFT. NO APPARENT DISTRESS NOTED. DENIES PAIN AND DISCOMFORT AT THIS TIME. ON ROOM AIR, NO SOB NOTED. IV ON RIGHT ANTECUBITAL #20 INTACT AND PATENT, IVF INFUSING WELL. KEPT CLEAN, DRY AND COMFORTABLE. SAFETY AND FALL PRECAUTIONS OBSERVED AND MAINTAINED. WILL ENDORSE TO DAY SHIFT RN FOR CONTINUITY OF CARE
--- NOTE | 2018-10-01 07:10 | NUR ---
MS RN OPENING NOTES RECEIVED PT LYING ON BED.ALERT/ORIENTED X1.ON ROOM AIR,TOLERATING WELL.NO SOB AND ACUTE DISTRESS NOTED.IV LINE IS ON RIGHT AC G20 WITH IV FLUIDS RUNNING,IV SITE IS CLEAN,DRY AND INTACT.NO INFILTRATION NOTED.SAFETY IS MAINTAINED AT ALL TIMES.BED IS IN LOW POSITION AND LOCKED,CALL LIGHT IS WITHIN REACH. WILL CONTINUE TO MONITOR THE PT CLOSELY.
[2018-10-01 08:00] VITALS: BP 96/54
[2018-10-01] MEDS: DORZOLAMIDE OPTH 2% 10 ML BOTTLE EACHEYE SCH ×2 (08:07→16:47)
[2018-10-01] MEDS: CHOLECALCIFEROL 1,000 UNIT TABLET (VIT D3) PO SCH (08:07)
[2018-10-01] MEDS: DOCUSATE SODIUM LIQ 100 MG/10 ML UDC PO SCH (08:07)
[2018-10-01] MEDS: TIMOLOL 0.5% SOLN OPHTH 5 ML BOTTLE EACHEYE SCH ×2 (09:22→16:50)
--- NOTE | 2018-10-01 15:00 | NUR ---
MS BUSINESS LIAISON MANAGER NOTES PT DISCHARGED TO HOME WITH FAMILY.ALL THE DISCHARGE MEDICATIONS AND FOLLOW UP APPOINTMENT WITH PCP HAS DISCUSSED WITH THE PT,VERBALIZED UNDERSTOOD.BELONGING LIST HAS SIGNED BY THE PT AND MADE SURE ALL THE BELONGING HAS TAKEN.SKIN ASSESSMENT HAS DONE AND IT IS INTACT.VITAL SIGNS ARE STABLE.ON ROOM AIR,TOLERATING WELL.NO SOB AND ACUTE DISTRESS NOTED.IV LINE FROM RIGHT HAND G24 IS REMOVED.NO BLEEDING NOTED.PT DISCHARGED TO HOME WITH MARIO VIA WHEELCHAIR,FAMILY REFUSED TO HAVE ACCOMPANY TO THE PARKING LOT TO ASSIST PT.NO COMPLICATIONS NOTED. Addendum: 10/01/18 at 1510 by KM HELM RN WRONG PT CHARTING.
--- NOTE | 2018-10-01 15:22 | NUR ---
MS RN NOTES CALLED ,NEUROLOGIST PER ASCENCION FRAUSTO REQUEST.HE SAID HE READ THE EEG YESTERDAY AND PER HIM NO SEIZURE ACTIVITY NOTED FOR THE PT. MADE AWARE.
[2018-10-01 16:00] VITALS: BP 101/60
[2018-10-01] MEDS: IV NS 0.9% 1,000 ML IV PRN (16:47)
[2018-10-01] MEDS: ASPIRIN 81 MG TAB.CHEW PO SCH (17:41)
[2018-10-01] MEDS: ENOXAPARIN SODIUM 40 MG/0.4 ML DISP.SYRIN SQ SCH (18:07)
--- NOTE | 2018-10-01 18:37 | NUR ---
MS RN CLOSING NOTES RECEIVED PT LYING ON BED.ALERT/ORIENTED X3.ON ROOM AIR,TOLERATING WELL.NO SOB AND ACUTE DISTRESS NOTED.IV LINE IS ON RIGHT AC G20 WITH IV FLUIDS RUNNING,IV SITE IS CLEAN,DRY AND INTACT.NO INFILTRATION NOTED.ALL DUE MEDS ARE GIVEN.NO SIGNIFICANT CHANGES NOTED IN THE SHIFT.ENDORSED TO BAG REPAIRER RN FOR GREGORY.
--- NOTE | 2018-10-01 19:00 | NUR ---
RN M/S NOTE PT IS AOX3, SPEECH CLEAR, ABLE TO MAKE NEEDS KNOWN, DENIES PAIN, ON ROOM AIR, NO S/SX OF CARDIAC OR RESPIRATORY DISTRESS, SKIN KEPT CLEAN AND DRY. RAC #20G PATENT FLUSHING WELL IV #20G WITH NS AT 60ML/HR, SITE IS CLEAN, DRY AND INTACT, SAFETY MAINTAINED AT ALL TIMES, BED IN LOW LOCKED POSITION, CALL LIGHT WITHIN REACH, WILL CONTINUE TO MONITOR FOR ANY CHANGES.
[2018-10-01 20:00] VITALS: BP 113/71
[2018-10-01] MEDS: ATORVASTATIN 10 MG TABLET PO SCH (21:02)
[2018-10-01] MEDS: LATANOPROST EYE DROP 0.005% 2.5 ML BOTTLE EACHEYE SCH (21:03)
[2018-10-02] MEDS: ALBUTEROL FS 2.5 MG/0.5 ML VIAL.NEB NEB SCH ×5 (03:07→19:30)
[2018-10-02 04:00] VITALS: BP 97/62
--- NOTE | 2018-10-02 07:20 | NUR ---
RN MS OPENING NOTES REPORT RECEIVED FROM SQL DATABASE DEVELOPER RN. PT IS AOX3, SPEECH CLEAR, ABLE TO MAKE NEEDS KNOWN, DENIES PAIN, ON ROOM AIR, NO S/SX OF CARDIAC OR RESPIRATORY DISTRESS, SKIN KEPT CLEAN AND DRY. RAC #20G PATENT FLUSHING WELL IV #20G WITH NS AT 60ML/HR, SITE IS CLEAN, DRY AND INTACT, SAFETY MAINTAINED AT ALL TIMES, BED IN LOW LOCKED POSITION, CALL LIGHT WITHIN REACH, WILL CONTINUE TO MONITOR FOR ANY CHANGES.
[2018-10-02 08:00] VITALS: BP 120/62
[2018-10-02] MEDS: TIMOLOL 0.5% SOLN OPHTH 5 ML BOTTLE EACHEYE SCH ×2 (08:12→17:29)
[2018-10-02] MEDS: DOCUSATE SODIUM LIQ 100 MG/10 ML UDC PO SCH (08:12)
[2018-10-02] MEDS: CHOLECALCIFEROL 1,000 UNIT TABLET (VIT D3) PO SCH (08:12)
[2018-10-02] MEDS: DORZOLAMIDE OPTH 2% 10 ML BOTTLE EACHEYE SCH ×2 (08:13→17:29)
--- NOTE | 2018-10-02 15:45 | NUR ---
PAGED TO FF. UP DISCHARGE ORDERS AND MEDS,AWAITS RESPONSE.ALSO MADE AWARE DAUGHTER WANTS TO TALK TO HIM.
[2018-10-02 16:00] VITALS: BP 112/68
[2018-10-02] MEDS: ASPIRIN 81 MG TAB.CHEW PO SCH (17:29)
--- NOTE | 2018-10-02 18:45 | NUR ---
RN D/C NOTES REPORT GIVEN TO FRAN JIMENEZ AT [facility]. PT WILL BE GOING INTO ROOM 26 SECTION 2. PT DENIES ANY BREATHING DIFFICULTIES AND PAIN. PT WILL BE TRANSPORTED BY AMBULANCE. PT'S IV WAS REMOVED. BELONGINGS RETURNED TO PT WITH LIST SIGNED. REPORT WILL BE GIVEN TO EMT'S UPON PICKUP.
--- NOTE | 2018-10-02 19:49 | NUR ---
UNABLE TO GIVE HHN TREATMENT; PATIENT DISCHARGED. Addendum: 10/02/18 at 1949 by LILA PATEL RT Amended: Links added.
== END 2018-10-02 23:33 | DRG 309 ==
LOC: ER 14:38 → TELE1 18:20 → MEDSG1 09-29 10:09
PROVIDERS: ADMIT Internal Medicine; ATTEND Internal Medicine
DX: I49.5 Sick sinus syndrome (principal); G93.40 Encephalopathy, unspecified; E46 Unspecified protein-calorie malnutrition; Z68.1 Body mass index [BMI] 19.9 or less, adult; E86.0 Dehydration; R53.1 Weakness; I25.10 Atherosclerotic heart disease of native coronary artery without angina pectoris; G30.9 Alzheimer's disease, unspecified; F02.80 Dementia in other diseases classified elsewhere, unspecified severity, without behavioral disturbance, psychotic disturbance, mood disturbance, and anxiety; I12.9 Hypertensive chronic kidney disease with stage 1 through stage 4 chronic kidney disease, or unspecified chronic kidney disease; N18.9 Chronic kidney disease, unspecified; T46.4X5A Adverse effect of angiotensin-converting-enzyme inhibitors, initial encounter; Y92.89 Other specified places as the place of occurrence of the external cause; R62.7 Adult failure to thrive; Z66 Do not resuscitate; Z98.61 Coronary angioplasty status; D63.8 Anemia in other chronic diseases classified elsewhere; R26.9 Unspecified abnormalities of gait and mobility
CPT/HCPCS: 36415; 70450-TC; 80048-TC; 80076-TC; 80305; 81000-TC; 82140-TC; 83605-TC; 84443-TC; 84484-TC; 85025-TC; 85730-TC; 87040-TC; 87081-TC; 87086-TC; 93307-TC; 95819-TC; 97110-TC; 97116-TC; 97530-TC; G0378; G0480; J1650; J7030; J7050; Q9967

== ENCOUNTER 2018-10-14 14:06 | Emergency (ER) | payer MEDICARE, OTHER ==
[~2018-10-14] VITALS: Ht 167.6 cm; Wt 54.9 kg
[~2018-10-14 14:06] MED LIST changes: +ALBU0.633 IH; +BISA10SU11 RC; -BISA10SU8 RC; -IPRA3AMP23 IH
--- NOTE | 2018-10-14 14:20 | NUR ---
OBI, FROM [facility], CAME IN DUE TO UNWITNESSED FALL 1 HR AGO MECHANICAL APPRENTICE, -KO, R HEAD ABRASION, PT AOx2, TO ER BED 10, RESPIRATIONS EVEN AND UNLABORED, HOOKED TO MONITOR, CHANGED TO GOWN, PROVIDED WITH WARM BLANKET, AWAITING MD MERLOS.
[2018-10-14] MEDS ORDERED: CALC-261 PO (14:22)
[2018-10-14] MEDS ORDERED: DORZ10DR EACHEYE ×2 (14:22→14:27)
[2018-10-14] MEDS ORDERED: CALC568P PO (14:22)
--- NOTE | 2018-10-14 14:22 | NUR ---
DR MONTERO AT BEDSIDE
--- NOTE | 2018-10-14 14:31 | NUR ---
WHEELED OUT VIA [facility] FOR CT SCAN.
[2018-10-14 14:49] LABS: BASOPHILS % (AUTO) 0.5 % (0.0-2.0); EOSINOPHILS % (AUTO) 2.8 % (0.0-6.0); HEMATOCRIT 36 % (39-51); HEMOGLOBIN 12.7 g/dL (13.5-17.5); LYMPHOCYTES # (AUTO) 1.3 /CMM (0.8-4.8); LYMPHOCYTES % (AUTO) 20.7 % (20.0-44.0); MEAN CORPUSCULAR HGB CONC 36 g/dl (31.0-36.0); MEAN CORPUSCULAR VOLUME 92 fL (80-96); MONOCYTES # (AUTO) 0.5 /CMM (0.1-1.30); MONOCYTES % (AUTO) 7.3 % (2.0-12.0); NEUTROPHILS # (AUTO) 4.4 /CMM (1.8-8.9); NEUTROPHILS % (AUTO) 68.7 % (43.0-81.0); PLATELET COUNT (AUTO) 214 /CMM (150-450); RED BLOOD CELL COUNT(AUTO) 3.85 MIL/uL (4.5-6.0); WHITE BLOOD COUNT (AUTO) 6.4 K/uL (4.3-11.0)
[2018-10-14 14:59] LABS: CALCIUM, SERUM 8.4 mg/dL (8.5-10.1); CARBON DIOXIDE 29 mmol/L (21-32); CHLORIDE 105 mmol/L (98-107); CREATININE 1.2 mg/dL (0.6-1.3); GLUCOSE 95 mg/dL (74-106); POTASSIUM 4.1 mmol/L (3.5-5.1); SODIUM SERUM 141 mmol/L (136-145); UREA NITROGEN, BLOOD 21 mg/dL (7-18)
[2018-10-14 15:04] LABS: ALANINE AMINOTRANSFERASE 40 U/L (12-78); ALBUMIN 3.6 g/dL (3.4-5.0); ALKALINE PHOSPHATASE 574 U/L (46-116); ASPARTATE AMINOTRANSFERASE 27 U/L (15-37); BILIRUBIN,DIRECT 0.2 mg/dL (0.0-0.2); TOTAL PROTEIN, SERUM 7.2 g/dL (6.4-8.2)
--- NOTE | 2018-10-14 15:35 | NUR ---
PT IN BED ASLEEP, EASILY AROUSED BY VERBAL STIMULI, HOOKED TO MONITOR, VSS, KEPT SAFE AND WARM. WILL CONTINUE TO MONITOR ACCORDINGLY.
--- NOTE | 2018-10-14 16:36 | NUR ---
REPORT GIVEN TO PANTERA JIMENEZ OF [facility].
--- NOTE | 2018-10-14 17:54 | NUR ---
[facility] TRIP [id number] ETA: [id number]
--- NOTE | 2018-10-14 18:39 | NUR ---
REPORT GIVEN TO EMT FROM [facility]. COPY OF IMAGING FINDINGS AND LABS GIVEN. Patient discharged to home in stable condition. Written and verbal after care instructions given. EMT verbalizes understanding of instruction. REPORT WAS GIV[facility] TO [facility]TER[facility] AT [facility].
[2018-10-14 18:40] VITALS: BP 112/65
== END 2018-10-14 18:41 | disposition home or self-care (01) ==
LOC: ER 14:06
DX: S00.03XA Contusion of scalp, initial encounter (principal); S09.8XXA Other specified injuries of head, initial encounter; R07.89 Other chest pain; G30.9 Alzheimer's disease, unspecified; F02.80 Dementia in other diseases classified elsewhere, unspecified severity, without behavioral disturbance, psychotic disturbance, mood disturbance, and anxiety; I10 Essential (primary) hypertension; M62.81 Muscle weakness (generalized); Z98.890 Other specified postprocedural states; Z79.82 Long term (current) use of aspirin; W18.39XA Other fall on same level, initial encounter; Y93.89 Activity, other specified; Y92.89 Other specified places as the place of occurrence of the external cause; Y99.8 Other external cause status
CPT/HCPCS: 36415; 70450-TC; 71045-TC; 80048-TC; 80076-TC; 84484-TC; 85025-TC

== ENCOUNTER 2018-12-27 19:34 | Inpatient (IN) | payer MEDICARE, OTHER ==
[~2018-12-27] VITALS: Ht 165.1 cm; Wt 59.4 kg
[~2018-12-27 19:34] MED LIST changes: +CALC-261 PO; +CALC568P PO; -DONE10TA44 PO; +DORZ10DR EACHEYE; -DORZ10DR10 EACHEYE
[2018-12-27 20:24] LABS: BASOPHILS % (AUTO) 0.3 % (0.0-2.0); EOSINOPHILS % (AUTO) 0.8 % (0.0-6.0); HEMATOCRIT 43 % (39-51); HEMOGLOBIN 14.6 g/dL (13.5-17.5); LYMPHOCYTES % (AUTO) 10.5 % (20.0-44.0); MEAN CORPUSCULAR HGB CONC 34 g/dl (31.0-36.0); MEAN CORPUSCULAR VOLUME 93 fL (80-96); MONOCYTES # (AUTO) 0.4 /CMM (0.1-1.30); MONOCYTES % (AUTO) 4.1 % (2.0-12.0); NEUTROPHILS % (AUTO) 84.3 % (43.0-81.0); PLATELET COUNT (AUTO) 187 /CMM (150-450); WHITE BLOOD COUNT (AUTO) 9.5 K/uL (4.3-11.0)
[2018-12-27] MEDS ORDERED: VANCOMYCIN 1 GM in IV D5W 250 ML IV ONE (20:30)
[2018-12-27] MEDS ORDERED: PIPERACILLIN /TAZOBACTAM 3.375 G in IV D5W 50 ML IV ONE (20:30)
[2018-12-27] MEDS ORDERED: IV NS 0.9% 1,000 ML BAG IV ONE (20:30)
[2018-12-27 20:36] LABS: APPEARANCE,URINE Clear (CLEAR); BILIRUBIN,URINE Negative (NEGATIVE); BLOOD, URINE Negative Ery/uL (NEGATIVE); COLOR,URINE Yellow (YELLOW); KETONES,URINE Negative (NEGATIVE); LEUKOCYTE ESTERASE ,URINE Negative (NEGATIVE); NITRITE, URINE Negative (NEGATIVE); PH,URINE 5.5 (5.0-8.0); PROTEIN,URINE Negative (NEGATIVE); UGLUCOSE Negative (NEGATIVE); UROBILINOGEN,URINE 0.2 EU/dL (0.2)
--- NOTE | 2018-12-27 20:47 | NUR ---
[id number] FROM [facility] C/O ABLABS WBC 12.5 AND GEN WEAK X 1 DAY. AAOX2 BASLINE NORMAL. MILD RHONCI BILAT. PT AAOX2, VSS. RR EVEN & UNLABORED. DENIES CP, SOB, DIZZINESS, N/V/D AT THIS TIME. SEEN & EVAL'D BY DR. ROBISON. MEDICATED ORDERED & WILL CONT TO MONITOR.
[2018-12-27 20:49] LABS: CALCIUM, SERUM 8.7 mg/dL (8.5-10.1); CARBON DIOXIDE 27 mmol/L (21-32); CHLORIDE 104 mmol/L (98-107); CREATININE 1.4 mg/dL (0.6-1.3); GLUCOSE 145 mg/dL (74-106); POTASSIUM 3.7 mmol/L (3.5-5.1); SODIUM SERUM 142 mmol/L (136-145); UREA NITROGEN, BLOOD 23 mg/dL (7-18)
[2018-12-27 20:54] LABS: ALANINE AMINOTRANSFERASE 47 U/L (12-78); ALBUMIN 3.7 g/dL (3.4-5.0); ALKALINE PHOSPHATASE 82 U/L (46-116); ASPARTATE AMINOTRANSFERASE 27 U/L (15-37); BILIRUBIN,DIRECT 0.3 mg/dL (0.0-0.2); BILIRUBIN,TOTAL 1.7 mg/dL (0.2-1.0); TOTAL PROTEIN, SERUM 7.9 g/dL (6.4-8.2)
--- NOTE | 2018-12-27 21:48 | NUR ---
CALLED FOR TELE BED, TURNED IN MOVE SHEET
--- NOTE | 2018-12-27 22:47 | NUR ---
Patient is resting comfortably in bed with eyes closed. Easily aroused. VSS. RR EVEN & UNLABORED, NAD NOTED @ THIS TIME. AWAITING BED & WILL CONT TO MONITOR.
--- NOTE | 2018-12-27 22:48 | NUR ---
BED ASSIGNMENT: 119-1
--- NOTE | 2018-12-27 22:57 | NUR ---
REPORT GIVEN TO BARBARA CASTELLANOS FOR CONT OF CARE.
[2018-12-27] MEDS ORDERED: TEMAZEPAM 15 MG CAPSULE PO PRN (23:00)
[2018-12-27] MEDS ORDERED: HYDROCODONE/APAP 5/325MG 1 EACH TABLET PO PRN (23:00)
[2018-12-27] MEDS ORDERED: ONDANSETRON HCL/PF 4 MG/2 ML VIAL IVP PRN (23:00)
[2018-12-27] MEDS ORDERED: MAG HYDROX/AL HYDROX/SIMETH 30 ML UDC PO PRN (23:00)
[2018-12-27] MEDS ORDERED: MORPHINE SULFATE INJ 2 MG/ML DISP.SYRIN IV PRN (23:00)
[2018-12-27] MEDS ORDERED: ACETAMINOPHEN 325 MG TABLET PO PRN (23:00)
[2018-12-27] MEDS ORDERED: ALBUTEROL FS 2.5 MG/3 ML VIAL.NEB NEB PRN (23:00)
[2018-12-27] MEDS ORDERED: MAGNESIUM HYDROXIDE 30 ML UDC PO PRN (23:00)
[2018-12-27 23:27] VITALS: BP 115/61
[2018-12-27] MEDS ORDERED: BISACODYL SUPP (10 MG) 10 MG/SUPP.RECT SUPP.RECT RC PRN (23:30)
[2018-12-27] MEDS ORDERED: NITROGLYCERIN 0.4 MG/TAB BOTTLE SL PRN (23:30)
[2018-12-27] MEDS ORDERED: NA PHOS,M-B/NA PHOS,DI-BA 1 EA ENEMA RC PRN (23:30)
--- NOTE | 2018-12-28 | NUR ---
RN ADMITTING NOTES RECEIVED PATIENT FROM ER & ADMITTED TO ROOM 119-1 W/ DX LACTIC ACIDOSIS & ACUTE RENAL FAILURE UNDER CARE OF DR VEGAS BUT W/ ADMITTING ORDERS FROM KILLIAN PHILLIPS NP. PATIENT A/A/O X1 TO NAME W/ CONFUSION & MOSTLY KINYARWANDA-SPEAKING BUT STILL ABLE TO UNDERSTAND THAI & ABLE TO FOLLOW SIMPLE COMMANDS. ON ROOM AIR W/ NO RESPIRATORY DISTRESS NOTED. RADIAL PULSES PRESENT. RIGHT AC IV #20 INTACT & PATENT W/ DRESSING CDI, NO SIGNS OF INFILTRATION NOTED. SKIN ASSESSMENT DONE. PATIENT ORIENTED TO ROOM & STAFF. SAFETY MEASURES IN PLACE W/ SIDE RAILS UP & BED ALARM ON. WILL CONTINUE TO MONITOR & CARRY OUT ADMITTING ORDERS.
[2018-12-28] MEDS: IV NS 0.9% 1,000 ML IV PRN ×2 (00:59→15:54)
[2018-12-28 04:00] VITALS: BP 124/71
[2018-12-28] MEDS ORDERED: PIPERACILLIN /TAZOBACTAM 2.25 G in IV D5W 50 ML IV SCH (05:00)
--- NOTE | 2018-12-28 07:15 | NUR ---
RN INITIAL NOTES PATIENT IN BED, AWAKE BUT CONFUSED. WAS TRYING TO PULL HIS IV LINE. ON NC 2L, BUT KEEPS REMOVING IT. HAS A RIGHT AC #20 WRAPPED WITH GAUZE, WITH NS AT 75ML/HR. NO COMPLAINS OF ANY PAIN OR SOB. ASKED TO BRING HIM A URINAL. PATIENT DID NOT URINATE. WAS ASKING TO GET OUT OF BED. BED LOCKED AND IN LOWEST POSITION. CALL LIGHT WITHIN REACH. WILL MONITOR CLOSELY THROUGHOUT THE SHIFT
[2018-12-28 07:25] LABS: BASOPHILS % (AUTO) 0.1 % (0.0-2.0); EOSINOPHILS % (AUTO) 0.1 % (0.0-6.0); HEMATOCRIT 37 % (39-51); HEMOGLOBIN 12.8 g/dL (13.5-17.5); LYMPHOCYTES # (AUTO) 0.6 /CMM (0.8-4.8); LYMPHOCYTES % (AUTO) 6.1 % (20.0-44.0); MEAN CORPUSCULAR HGB CONC 35 g/dl (31.0-36.0); MEAN CORPUSCULAR VOLUME 93 fL (80-96); MONOCYTES # (AUTO) 0.3 /CMM (0.1-1.30); MONOCYTES % (AUTO) 3.2 % (2.0-12.0); NEUTROPHILS # (AUTO) 9.6 /CMM (1.8-8.9); NEUTROPHILS % (AUTO) 90.5 % (43.0-81.0); PLATELET COUNT (AUTO) 150 /CMM (150-450); RED BLOOD CELL COUNT(AUTO) 3.97 MIL/uL (4.5-6.0); WHITE BLOOD COUNT (AUTO) 10.6 K/uL (4.3-11.0)
[2018-12-28 07:47] LABS: CALCIUM, SERUM 7.9 mg/dL (8.5-10.1); CARBON DIOXIDE 23 mmol/L (21-32); CHLORIDE 108 mmol/L (98-107); CHOLESTEROL 114 mg/dL (<200); CREATININE 1.1 mg/dL (0.6-1.3); GLUCOSE 122 mg/dL (74-106); HDL CHOLESTEROL 62 mg/dL (40-60); LDL 47 mg/dL (0-99); MAGNESIUM 1.9 mg/dL (1.8-2.4); PHOSPHORUS 2.1 mg/dL (2.5-4.9); POTASSIUM 3.9 mmol/L (3.5-5.1); SODIUM SERUM 142 mmol/L (136-145); TRIGLYCERIDES 39 mg/dL (30-150); UREA NITROGEN, BLOOD 16 mg/dL (7-18)
[2018-12-28] MEDS: PIPERACILLIN /TAZOBACTAM 3.375 G in IV D5W 100 ML IV SCH ×3 (08:54→23:07)
[2018-12-28] MEDS: CALCIUM CARB 600MG /VIT D 1 EACH TABLET PO SCH (08:55)
[2018-12-28] MEDS: CHOLECALCIFEROL 1,000 UNIT TABLET (VIT D3) PO SCH (08:55)
[2018-12-28] MEDS: DOCUSATE SODIUM LIQ 100 MG/10 ML UDC PO SCH (08:55)
[2018-12-28] MEDS: DORZOLAMIDE OPTH 2% 10 ML BOTTLE EACHEYE SCH ×2 (08:55→17:17)
[2018-12-28] MEDS: TIMOLOL 0.5% SOLN OPHTH 5 ML BOTTLE EACHEYE SCH ×2 (08:56→17:18)
[2018-12-28] MEDS: PROSOURCE / PROSTAT (PYXIS) 30 ML UDC PO SCH (08:56)
--- NOTE | 2018-12-28 11:50 | NUR ---
RN NOTES PARVEEN SCORE <18, ENTERED WOUND CARE PLAN
--- NOTE | 2018-12-28 15:00 | NUR ---
RN NOTES PATIENT IS DR VEGAS'S PATIENT. ONE OF [facility]S DOCTORS ADMITTED THE PATIENT LAST NIGHT. DR VEGAS MADE AWARE THAT HIS PATIENT IS HERE. DR VEGAS AT BEDSIDE, NEW ORDERS OF EEG, LIPITOR, LOVENOX AND PT EVAL ORDERED AND CARRIED OUT
[2018-12-28] MEDS: ENOXAPARIN SODIUM 40 MG/0.4 ML DISP.SYRIN SQ SCH (15:11)
[2018-12-28] MEDS ORDERED: K PHOS NEUTRAL 250 MG TABLET PO ONE (15:30)
[2018-12-28 16:00] VITALS: BP 127/83
--- NOTE | 2018-12-28 16:37 | NUR ---
RN NOTES PATIENT ACCIDENTALLY REMOVED HIS LEFT HAND #22 IV. WILL TRY TO INSERT A NEW ONE
[2018-12-28] MEDS: ASPIRIN 81 MG TAB.CHEW PO SCH (17:16)
--- NOTE | 2018-12-28 18:44 | NUR ---
RN CLOSING NOTE PATIENT IN BED AWAKE AND ALERT X3. WAS PLACED IN THE ROOM TOGETHER WITH A SITTER. HAD 4X BM, SMALL AMOUNTS. RIGHT AC #20 NS 75ML/HR AND R HAND #22 SL. PT DONE TODAY, AMB WITH ASSIST. PHOS REPLACED. ST PENDING. BED LOCKED AND IN LOWEST POSITION. CALL LIGHT WITHIN REACH. WILL ENDORSE TO NOC SHIFT FOR GREGORY
--- NOTE | 2018-12-28 19:30 | NUR ---
RN NOTES RECEIVED PT. AWAKE ON BED, SITTER AT BEDSIDE, NO PAIN NOTED, NO SOB, CALL LIGHT WITHIN REACH, [id number],WILL CONTINUE TO MONITOR
[2018-12-28 20:00] VITALS: BP 124/69
[2018-12-28] MEDS ORDERED: ENOXAPARIN SODIUM 40 MG/0.4 ML DISP.SYRIN SQ SCH (21:00)
[2018-12-28] MEDS: ATORVASTATIN 10 MG TABLET PO SCH (21:44)
[2018-12-28] MEDS: LATANOPROST EYE DROP 0.005% 2.5 ML BOTTLE EACHEYE SCH (21:44)
[2018-12-28] MEDS ORDERED: ATORVASTATIN 10 MG TABLET PO SCH (22:00)
[2018-12-29 04:00] VITALS: BP 139/73
--- NOTE | 2018-12-29 06:23 | NUR ---
RN NOTES AWAKE, DENIES PAIN, NO SOB. MORNING CARE RENDERED, CALL LIGHT WITHIN REACH, [id number], PT. NEEDS ATTENDED
[2018-12-29] MEDS: PIPERACILLIN /TAZOBACTAM 3.375 G in IV D5W 100 ML IV SCH (07:21)
[2018-12-29 08:00] VITALS: BP 143/67
[2018-12-29] MEDS: CALCIUM CARB 600MG /VIT D 1 EACH TABLET PO SCH (08:43)
[2018-12-29] MEDS: DOCUSATE SODIUM LIQ 100 MG/10 ML UDC PO SCH (08:44)
[2018-12-29] MEDS: CHOLECALCIFEROL 1,000 UNIT TABLET (VIT D3) PO SCH (08:44)
[2018-12-29] MEDS: ENOXAPARIN SODIUM 40 MG/0.4 ML DISP.SYRIN SQ SCH (08:45)
[2018-12-29] MEDS: TIMOLOL 0.5% SOLN OPHTH 5 ML BOTTLE EACHEYE SCH ×2 (08:49→16:55)
[2018-12-29] MEDS: DORZOLAMIDE OPTH 2% 10 ML BOTTLE EACHEYE SCH ×2 (08:49→16:55)
[2018-12-29] MEDS: PROSOURCE / PROSTAT (PYXIS) 30 ML UDC PO SCH (11:01)
[2018-12-29 16:00] VITALS: BP 128/58
[2018-12-29] MEDS: ASPIRIN 81 MG TAB.CHEW PO SCH (17:21)
--- NOTE | 2018-12-29 17:26 | NUR ---
CLOSING PATIENT IN BED AWAKE AND ALERT X3. WAS PLACED IN THE ROOM TOGETHER WITH A SITTER. HAD 1X BM, SMALL AMOUNTS. RIGHT AC #20 H/L AND R HAND #22 SL. PT, AMBULATED WITHOUT ASSIST.. ST PENDING. BED LOCKED AND IN LOWEST POSITION. CALL LIGHT WITHIN REACH. WILL ENDORSE TO NOC SHIFT FOR CONTINUITY OF CARE PT WONDERING ANDINO TALKING TO CHARGE NURSE C/O NO SHOES OR PANTS INTAKE VALUABLE LIST FROM ER SHOWED NO SHOES OR PANTS.
[2018-12-29 19:58] VITALS: BP 111/59
--- NOTE | 2018-12-29 20:29 | NUR ---
MS RN NOTE PATIENT IN BED SLEEPING, EASILY AWOKEN. PATIENT ORIENTED X 3. PATIENT DENIES CHEST PAIN NO S/S OF RESP DISTRESS. PATIENT HAS RAC 20G AND RH 22. PATENT INTACT NO S/S OF INFILTRATION AND INFECTION. SAFETY PRECAUTIONS IN PLACE. BED ALARM ON. CALL LIGHT WITHIN REACH. SIDE RAILS UP X 2. RN WILL CONTINUE TO MONITOR FOR CHANGES.
[2018-12-29] MEDS: LATANOPROST EYE DROP 0.005% 2.5 ML BOTTLE EACHEYE SCH (21:25)
[2018-12-29] MEDS: ATORVASTATIN 10 MG TABLET PO SCH (21:27)
[2018-12-30] VITALS: BP 115/66
[2018-12-30 04:47] VITALS: BP 124/61
--- NOTE | 2018-12-30 06:51 | NUR ---
MS RN NOTE PATIENT TOLERATED THE NIGHT/ NO ACIUTE CHANGES THROUGHOUT SHIFT. ALL NEEDS MET. PATIENT DENIES CHEST PAIN/SOB/ . SAFETY PRECAUTIONS IN PLACE. RN WILL ENDORSE POC TO AM FOR GREGORY. RN WILL CONTINUE TO MONITOR.
--- NOTE | 2018-12-30 07:20 | NUR ---
RN NOTES RECEIVED PATIENT IN BED, ASLEEP IN BED, EASILY AROUSABLE, ABLE TO MAKE NEEDS KNOWN . RESPIRATIONS EVEN AND UNLABORED, IN NO APPARENT PAIN OR DISCOMFORT AT THIS TIME. IV ACCESS TO RAC AND R HAND PATENT AND INTACT NO REDNESS OR INFILTRATION NOTED. SAFETY MEASURES IN PLACE, PATIENT KEPT CLEAN DRY AND COMFORTABLE, CALL LIGHT WITHIN EASY REACH WILL CONTINUE TO MONITOR
[2018-12-30 07:52] LABS: ALANINE AMINOTRANSFERASE 48 U/L (12-78); ALBUMIN 3.2 g/dL (3.4-5.0); ALKALINE PHOSPHATASE 71 U/L (46-116); ASPARTATE AMINOTRANSFERASE 31 U/L (15-37); BILIRUBIN,TOTAL 1.4 mg/dL (0.2-1.0); CALCIUM, SERUM 8.6 mg/dL (8.5-10.1); CARBON DIOXIDE 28 mmol/L (21-32); CHLORIDE 105 mmol/L (98-107); CREATININE 1.1 mg/dL (0.6-1.3); GLUCOSE 87 mg/dL (74-106); MAGNESIUM 1.8 mg/dL (1.8-2.4); POTASSIUM 3.6 mmol/L (3.5-5.1); SODIUM SERUM 142 mmol/L (136-145); TOTAL PROTEIN, SERUM 7.4 g/dL (6.4-8.2); UREA NITROGEN, BLOOD 13 mg/dL (7-18)
[2018-12-30] MEDS: CHOLECALCIFEROL 1,000 UNIT TABLET (VIT D3) PO SCH (08:25)
[2018-12-30] MEDS: ISOSORBIDE MONONITRATE (30MG) 30 MG TAB.SR.24H PO SCH (08:26)
[2018-12-30] MEDS: DOCUSATE SODIUM LIQ 100 MG/10 ML UDC PO SCH (08:27)
[2018-12-30] MEDS: PROSOURCE / PROSTAT (PYXIS) 30 ML UDC PO SCH (08:27)
[2018-12-30] MEDS: CALCIUM CARB 600MG /VIT D 1 EACH TABLET PO SCH (08:27)
[2018-12-30] MEDS: ENOXAPARIN SODIUM 40 MG/0.4 ML DISP.SYRIN SQ SCH (08:33)
[2018-12-30 08:40] VITALS: BP 122/62
[2018-12-30] MEDS: DORZOLAMIDE OPTH 2% 10 ML BOTTLE EACHEYE SCH ×2 (08:46→17:03)
[2018-12-30] MEDS: TIMOLOL 0.5% SOLN OPHTH 5 ML BOTTLE EACHEYE SCH ×2 (08:46→17:03)
[2018-12-30 09:00] LABS: BASOPHILS % (AUTO) 0.3 % (0.0-2.0); EOSINOPHILS % (AUTO) 4.2 % (0.0-6.0); HEMATOCRIT 39 % (39-51); HEMOGLOBIN 13.2 g/dL (13.5-17.5); LYMPHOCYTES # (AUTO) 1.3 /CMM (0.8-4.8); LYMPHOCYTES % (AUTO) 17.7 % (20.0-44.0); MEAN CORPUSCULAR HGB CONC 34 g/dl (31.0-36.0); MEAN CORPUSCULAR VOLUME 93 fL (80-96); MONOCYTES # (AUTO) 0.4 /CMM (0.1-1.30); MONOCYTES % (AUTO) 4.9 % (2.0-12.0); NEUTROPHILS # (AUTO) 5.5 /CMM (1.8-8.9); NEUTROPHILS % (AUTO) 72.9 % (43.0-81.0); PLATELET COUNT (AUTO) 172 /CMM (150-450); RED BLOOD CELL COUNT(AUTO) 4.14 MIL/uL (4.5-6.0); WHITE BLOOD COUNT (AUTO) 7.5 K/uL (4.3-11.0)
[2018-12-30] MEDS ORDERED: CT SWABBABLE VALVE TRANS SET 1 EA INFUS.SET MC ONE (10:42)
[2018-12-30] MEDS ORDERED: IV NS 0.9% 250 ML IV ONE (10:42)
[2018-12-30] MEDS ORDERED: IOHEXOL-350 100 ML VIAL IV ONE ×2 (10:42→12:02)
[2018-12-30 16:00] VITALS: BP 101/68
[2018-12-30] MEDS: ASPIRIN 81 MG TAB.CHEW PO SCH (17:03)
[2018-12-30 17:20] VITALS: BP 101/68
--- NOTE | 2018-12-30 18:37 | NUR ---
RN NOTES PATIENT IN BED, AWAKE IN BED, ABLE TO MAKE NEEDS KNOWN . RESPIRATIONS EVEN AND UNLABORED, IN NO APPARENT PAIN OR DISCOMFORT AT THIS TIME. IV ACCESS TO RAC AND L LAC PATENT AND INTACT NO REDNESS OR INFILTRATION NOTED. SAFETY MEASURES IN PLACE, PATIENT KEPT CLEAN DRY AND COMFORTABLE, CALL LIGHT WITHIN EASY REACH WILL CONTINUE TO MONITOR AND ENDORSE TO NEXT SHIFT FOR CONTINUITY OF CARE
[2018-12-30 20:00] VITALS: BP 104/61
--- NOTE | 2018-12-30 20:00 | NUR ---
RN NOTES RECEIVED PATIENT BEDSIDE REPORT FROM AM RN. PATIENT IS IN BED, ASLEEP IN BED, EASILY AROUSAL, ABLE TO MAKE NEEDS KNOWN . RESPIRATIONS EVEN AND UNLABORED, IN NO APPARENT PAIN OR DISCOMFORT AT THIS TIME. IV ACCESS TO RAC AND R HAND PATENT AND INTACT NO REDNESS OR INFILTRATION NOTED. SAFETY MEASURES IN PLACE, PATIENT IS CLEAN DRY AND COMFORTABLE, CALL LIGHT WITHIN EASY REACH WILL CONTINUE TO MONITOR
[2018-12-30] MEDS: LATANOPROST EYE DROP 0.005% 2.5 ML BOTTLE EACHEYE SCH (22:02)
[2018-12-30] MEDS: ATORVASTATIN 10 MG TABLET PO SCH (22:02)
[2018-12-31 04:00] VITALS: BP 115/67
[2018-12-31 08:00] VITALS: BP 125/77
[2018-12-31] MEDS: ENOXAPARIN SODIUM 40 MG/0.4 ML DISP.SYRIN SQ SCH (08:45)
[2018-12-31] MEDS: PROSOURCE / PROSTAT (PYXIS) 30 ML UDC PO SCH (08:46)
[2018-12-31] MEDS: CHOLECALCIFEROL 1,000 UNIT TABLET (VIT D3) PO SCH (08:46)
[2018-12-31] MEDS: CALCIUM CARB 600MG /VIT D 1 EACH TABLET PO SCH (08:46)
[2018-12-31] MEDS: ISOSORBIDE MONONITRATE (30MG) 30 MG TAB.SR.24H PO SCH (08:47)
[2018-12-31] MEDS: DOCUSATE SODIUM LIQ 100 MG/10 ML UDC PO SCH (08:47)
[2018-12-31] MEDS: TIMOLOL 0.5% SOLN OPHTH 5 ML BOTTLE EACHEYE SCH ×2 (09:30→18:12)
[2018-12-31] MEDS: DORZOLAMIDE OPTH 2% 10 ML BOTTLE EACHEYE SCH ×2 (09:30→18:12)
[2018-12-31 16:00] VITALS: BP 123/69
[2018-12-31] MEDS: ASPIRIN 81 MG TAB.CHEW PO SCH (18:12)
--- NOTE | 2018-12-31 19:10 | NUR ---
MS RN NOTE RECEIVED PT IN STABLE CONDITION A&O X3. CURRENTLY IN BED WATCHING TV. NO SIGNS OF SOB OR DISTRESS, NO C/O PAIN. IV IN RAC IN PLACE. ALL CURRENT NEEDS ATTENDED TO. BED LOW, LOCKED, UPPER RAILS UP, AND CALL LIGHT WITHIN REACH. WILL CONT. TO MONITOR.
[2018-12-31 20:00] VITALS: BP 108/62
[2018-12-31 21:00] VITALS: BP 123/69
[2018-12-31] MEDS: ATORVASTATIN 10 MG TABLET PO SCH (21:17)
[2018-12-31] MEDS: LATANOPROST EYE DROP 0.005% 2.5 ML BOTTLE EACHEYE SCH (21:17)
[2019-01-01 04:00] VITALS: BP 130/71
--- NOTE | 2019-01-01 04:34 | NUR ---
MS RN NOTE PT REFUSING BED BATH, REQUESTING TO BE DONE LATER IN THE MORNING. WILL ENDORSE TO NEXT SHIFT AT 0700.
[2019-01-01 05:09] VITALS: BP 130/71
--- NOTE | 2019-01-01 06:17 | NUR ---
MS RN NOTE PT IN STABLE CONDITION A&O X3. CURRENTLY RESTING IN BED. NO SIGNS OF SOB OR DISTRESS, NO C/O PAIN. IV IN RAC IN PLACE. ALL CURRENT NEEDS ATTENDED TO. BED LOW, LOCKED, UPPER RAILS UP, AND CALL LIGHT WITHIN REACH. WILL CONT. TO MONITOR AND ENDORSE TO NEXT SHIFT FOR GREGORY.
--- NOTE | 2019-01-01 07:30 | NUR ---
RN MS NOTES PT AWAKE, ALERT AND ORIENTED, SITTING IN BED, NO COMPLAINT OF PAIN, NOT IN DISTRESS, ABLE TO AMBULATE TO THE BATHROOM WITH STEADY GAIT, CALL LIGHT WITHIN REACH, NEEDS ATTENDED.
[2019-01-01 08:00] VITALS: BP 112/71
[2019-01-01] MEDS: DOCUSATE SODIUM LIQ 100 MG/10 ML UDC PO SCH (08:10)
[2019-01-01] MEDS: CALCIUM CARB 600MG /VIT D 1 EACH TABLET PO SCH (08:10)
[2019-01-01 08:11] VITALS: BP 112/71
[2019-01-01] MEDS: ISOSORBIDE MONONITRATE (30MG) 30 MG TAB.SR.24H PO SCH (08:11)
[2019-01-01] MEDS: DORZOLAMIDE OPTH 2% 10 ML BOTTLE EACHEYE SCH (08:11)
[2019-01-01] MEDS: TIMOLOL 0.5% SOLN OPHTH 5 ML BOTTLE EACHEYE SCH (08:11)
[2019-01-01] MEDS: CHOLECALCIFEROL 1,000 UNIT TABLET (VIT D3) PO SCH (08:11)
[2019-01-01] MEDS: ENOXAPARIN SODIUM 40 MG/0.4 ML DISP.SYRIN SQ SCH (08:16)
[2019-01-01] MEDS: PROSOURCE / PROSTAT (PYXIS) 30 ML UDC PO SCH (09:28)
--- NOTE | 2019-01-01 12:43 | NUR ---
RN MS NOTES PT IN BED, AWAKE, ALERT AND ORIENTED, DENIES PAIN, NOT IN DISTRESS, DISCHARGE ORDER RECEIVED FROM DR. VEGAS, PT INFORMED, DISCHARGE AND MEDICATION INSTRUCTIONS PROVIDED TO PT, VERBALIZED UNDERSTANDING, CALLED AND GAVE REPORT TO ADMITTING NURSE [facility] OF [facility], PT'S BELONGINGS ACCOUNTED FOR, AWAITING FOR AMBULANCE [facility]AW[facility] TRAWLER HAND.
--- NOTE | 2019-01-01 14:16 | NUR ---
RN MS NOTES PT IN BED, RESTING, NO COMPLAINT OF PAIN OR DISTRESS, CALLED DAUGHTER MACARENA TO INFORM HER OF PT'S DISCHARGE, LEFT MESSAGE ON HER PHONE, PICKED UP BY 2 AMBULANCE PERSONNEL, LEFT [facility] IN STABLE CONDITION.
== END 2019-01-01 14:09 | DRG 871 ==
LOC: ER 19:40 → TELE1 22:58 → MEDSG1 23:07
PROVIDERS: ADMIT Internal Medicine; ATTEND Internal Medicine
DX: A41.9 Sepsis, unspecified organism (principal); G93.41 Metabolic encephalopathy; N17.0 Acute kidney failure with tubular necrosis; J69.0 Pneumonitis due to inhalation of food and vomit; E87.2 Acidosis; D68.59 Other primary thrombophilia; R64 Cachexia; I25.10 Atherosclerotic heart disease of native coronary artery without angina pectoris; Z98.61 Coronary angioplasty status; R53.1 Weakness; G30.9 Alzheimer's disease, unspecified; F02.80 Dementia in other diseases classified elsewhere, unspecified severity, without behavioral disturbance, psychotic disturbance, mood disturbance, and anxiety; E78.5 Hyperlipidemia, unspecified; E55.9 Vitamin D deficiency, unspecified; R26.9 Unspecified abnormalities of gait and mobility; R53.81 Other malaise; Z66 Do not resuscitate; N18.9 Chronic kidney disease, unspecified
CPT/HCPCS: 36415; 71045-TC; 75574; 80048-TC; 80053-TC; 80061-TC; 80076-TC; 81000-TC; 83605-TC; 83735-TC; 83880; 84100-TC; 84484-TC; 85025-TC; 85730-TC; 87040-TC; 87086-TC; 92521; 92526; 95819-TC; 97116-TC; 97530-TC; G0378; J1650; J2543; J3370; J7030; J7050; J7060; Q9967